=== PATIENT | male | born 1970 | race Caucasian/White ===

== ENCOUNTER 2020-11-16 16:37 | Emergency (ER) | payer MEDICAID ==
[2020-11-16] MEDS ORDERED: TORAdol 30 mg Injection IM ONE (16:47)
[2020-11-16] MEDS ORDERED: TORAdol 30 mg Injection ONE (16:50)
--- NOTE | 2020-11-16 17:10 | ERPHSYRPT ---
- History of Present Illness Time Seen by Provider: 11/16/20 17:07 Source: patient Exam Limitations: no limitations Patient Subjective Stated Complaint: left ankle pain Triage Nursing Assessment: Patient ambulated slowly back to ED and transferred self to bed. Patient A+O X3. Patient's skin pink, warm and dry. Patient complains of left ankle pain 9/10 for 4 days. Left ankle noted to be swollen. Patient denies injuring area. No bruising noted. Physician History: left ankle pain 1 day Patient complains of left ankle pain 9/10 for 4 days. Left ankle noted to be swollen. Patient denies injuring area. No bruising noted. Quality: burning Severity of Pain-Max: moderate Severity of Pain-Current: moderate Lower Extremities Pain: ankle: left Allergies/Adverse Reactions: No Known Drug Allergies Allergy (Unverified 11/16/20 16:42) Hx Influenza Vaccination/Date Given: No Hx Pneumococcal Vaccination/Date Given: No Immunizations Up to Date: Yes Travel Risk - International Travel Have you traveled outside of the country in past 3 weeks: No - Coronavirus Screening Are you exhibiting any of the following symptoms?: No Close contact with a COVID-19 positive Pt in past 14-21 Days: No - Review of Systems Constitutional: No Symptoms Eyes: No Symptoms Ears, Nose, & Throat: No Symptoms Respiratory: No Symptoms Cardiac: No Symptoms Abdominal/Gastrointestinal: No Symptoms Genitourinary Symptoms: No Symptoms Musculoskeletal: Joint Pain, Joint Swelling (left ankle) - Past Medical History Pertinent Past Medical History: Yes Neurological History: No Pertinent History ENT History: No Pertinent History Cardiac History: High Cholesterol Respiratory History: No Pertinent History Endocrine Medical History: No Pertinent History Musculoskeletal History: No Pertinent History GI Medical History: No Pertinent History History: No Pertinent History Psycho-Social History: No Pertinent History Male Reproductive Disorders: No Pertinent History Other Medical History: GOUT - Past Surgical History Past Surgical History: Yes Neuro Surgical History: No Pertinent History Cardiac: No Pertinent History Respiratory: No Pertinent History Gastrointestinal: No Pertinent History Genitourinary: No Pertinent History Musculoskeletal: Orthopedic Surgery Male Surgical History: No Pertinent History Other Surgical History: Right elbow 1991. Left elbow 2017 - Social History Smoking Status: Never smoker Exposure to second hand smoke: No Drug Use: none Patient Lives Alone: No - Nursing Vital Signs Nursing Vital Signs: Initial Vital Signs Temperature 98.5 F 11/16/20 16:43 Pulse Rate 99 H 11/16/20 16:43 Respiratory Rate 18 11/16/20 16:43 Blood Pressure 143/105 11/16/20 16:43 O2 Sat by Pulse Oximetry 97 11/16/20 16:43 Pain Scale Pain Intensity 9 - Physical Exam General Appearance: no apparent distress Eyes, Ears, Nose, Throat Exam: normal ENT inspection Neck Exam: normal inspection Cardiovascular/Respiratory Exam: chest non-tender Gastrointestinal/Abdominal Exam: non-tender Back Exam: normal inspection Hips Exam: bilateral: non-tender Legs Exam: bilateral leg: non-tender Knees Exam: bilateral knee: non-tender Ankle Exam: left ankle: soft tissue tenderness Foot Exam: left foot: soft tissue tenderness Neuro/Tendon Exam: normal sensation Mental Status Exam: alert, oriented x 3, cooperative SpO2: 97 - Course Nursing assessment & vital signs reviewed: Yes Ordered Tests: Active Orders 24 hr Category Date Time Status CBC W DIFF Stat Lab 11/16/20 16:47 Completed CMP Routine Lab 11/16/20 16:47 Completed Uric Acid Routine Lab 11/16/20 16:47 Completed Medication Summary Discontinued Medications Generic Name Dose Route Start Last Admin Trade Name Yohanq PRN Reason Stop Dose Admin Ketorolac Tromethamine 60 mg 11/16/20 16:47 11/16/20 16:52 Toradol 30 Mg Injection IM 11/16/20 16:48 60 mg STAT ONE Administration Ketorolac Tromethamine Confirm 11/16/20 16:50 Toradol 30 Mg Injection Administered 11/16/20 16:51 Dose 60 mg .ROUTE .STK-MED ONE Lab/Rad Data: Laboratory Result Diagrams 11/16/20 16:47 11/16/20 16:47 Laboratory Results 11/16/20 11/16/20 Range/Units 16:47 16:47 WBC 8.2 (4.0-10.5) K/mm3 RBC 4.64 (4.1-5.6) M/mm3 Hgb 14.0 (12.5-18.0) gm/dl Hct 41.4 L (42-50) % MCV 89.2 (78-100) fl MCH 30.2 (26-32) pg MCHC 33.8 (32-36) g/dl RDW 12.4 (11.5-14.0) % Plt Count 250 (150-450) K/mm3 MPV 9.3 (7.5-11.0) fl Gran % 55.8 (36.0-66.0) % Eos # (Auto) 0.14 (0-0.5) Absolute Lymphs (auto) 2.67 (1.0-4.6) Absolute Monos (auto) 0.80 (0.0-1.3) Lymphocytes % 32.4 (24.0-44.0) % Monocytes % 9.7 (0.0-12.0) % Eosinophils % 1.7 (0.00-5.0) % Basophils % 0.4 (0.0-0.4) % Absolute Granulocytes 4.60 (1.4-6.9) Basophils # 0.03 (0-0.4) Sodium 139 (137-145) mmol/L Potassium 4.4 (3.5-5.1) mmol/L Chloride 104 (98-107) mmol/L Carbon Dioxide 29 (22-30) mmol/L Anion Gap 10.4 (5-15) MEQ/L BUN 22 H (9-20) mg/dL Creatinine 1.11 (0.66-1.25) mg/dL Estimated GFR > 60.0 ML/MIN Glucose 104 (74-106) mg/dL Uric Acid 9.0 H (3.5-7.2) mg/dL Calcium 9.2 (8.4-10.2) mg/dL Total Bilirubin 0.50 (0.2-1.3) mg/dL AST 20 (17-59) U/L ALT 23 (0-50) U/L Alkaline Phosphatase 63 (38-126) U/L Serum Total Protein 7.5 (6.3-8.2) g/dL Albumin 4.2 (3.5-5.0) g/dL - Progress Progress: improved, pain not gone completely Counseled pt/family regarding: lab results, diagnosis, need for follow-up - Departure Departure Disposition: Home Clinical Impression: Gouty arthritis of left ankle Condition: Stable Critical Care Time: No Referrals: DOCTOR,NO FAMILY [Primary Care Provider] - Instructions: Lifestyle Changes to Manage Gout, Gout (DC) Additional Instructions: GEETHA RIDDLE was seen on 11/16/20 n the Emergency Room. At that time you were treated for an emergent condition, during your visit Laboratory, Radiology and/or other procedures may have been ordered. It is very important that you follow-up with your Primary Care Physician NO FAMILY DOCTOR within the next 24- 48 hours to review your Emergency Room visit and the final results of testing that was ordered. Some test results such as Urine Cultures, Blood Cultures, and other cultures if ordered will not be finalized for 24-48 hours. If you do not have a Primary Care Provider please call the medical records department at [phone] ext [phone] to obtain a copy of your results or you may sign into our patient portal to obtain these results by visiting us @ [email or web address] and completing the following steps: 1. Click on the Patient Portal link 2. Click the Patient Self Enrollment Link to complete the enrollment form and entering your 3. Once the enrollment form is completed you will receive an email with a temporary ID and password at the email address you provided. 4. Next choose a user name and password. Your user name must be at least 4 characters long and your password must be at least 4 characters long. 5. Choose a security question from the list and provide your answer to the question. If you already have signed into the Health Portal you may access your Health Care Information 08/06 by the following steps: 1. Login to our website @ [email or web address] 2. Enter your original user name and password. FAQS The [facility] Health Portal is an online tool that contains your Lab Results, Radiology Reports, Visit History, Discharge Instructions and Health Summary Lab and Radiology Results will not be available for 72 hours on the portal. The Portal is a secure site, passwords are encryted and URLs are re-written so they cannot be copied and pasted. You and authorized family members are the only ones who can access your Portal. Also there is a timeout feature that protects your information if you leave the Portal page open. If you have technical difficulty please use the Contact Us link on the page this will allow you to submit any questions you have regarding the Portal or you may contact the Medical Record Department at [phone]. Prescriptions: Indomethacin 25 mg [Indocin 25 MG] 25 mg PO TID #30 capsule Allopurinol 100 mg [Zyloprim 100 mg] 100 mg PO DAILY #30 tablet
[2020-11-16 17:24] LABS: BASOPHIL % 0.4 % (0.0-0.4); Basophil (Absolute #) 0.03 (0-0.4); Eosinophil % 1.7 % (0.00-5.0); Eosinophil (Absolute #) 0.14 (0-0.5); Hematocrit 41.4 % (42-50); Lymphocyte (Absolute #) 2.67 (1.0-4.6); Lymphocytes % 32.4 % (24.0-44.0); Mean Cell Volume 89.2 fl (78-100); Mean Corpuscular Hemoglobin 30.2 pg (26-32); Mean Corpuscular Hgb Concent. 33.8 g/dl (32-36); Mean Platelet Volume 9.3 fl (7.5-11.0); Monocytes % 9.7 % (0.0-12.0); Neutrophil % 55.8 % (36.0-66.0); Platelet Count 250 K/mm3 (150-450); Red Blood Count 4.64 M/mm3 (4.1-5.6); Red Cell Distribution Width 12.4 % (11.5-14.0); White Blood Count 8.2 K/mm3 (4.0-10.5)
[2020-11-16 17:34] LABS: ALBUMIN 4.2 g/dL (3.5-5.0); ALKALINE PHOSPHATASE 63 U/L (38-126); ANION GAP 10.4 MEQ/L (5-15); BLOOD UREA NITROGEN 22 mg/dL (9-20); CHLORIDE 104 mmol/L (98-107); Calcium 9.2 mg/dL (8.4-10.2); Carbon Dioxide 29 mmol/L (22-30); Creatinine 1 1.11 mg/dL (0.66-1.25); EST GLOMERULAR FILTRATION RATE > 60.0 ML/MIN; Glucose 104 mg/dL (74-106); Potassium 4.4 mmol/L (3.5-5.1); SGOT/AST 20 U/L (17-59); SGPT/ALT 23 U/L (0-50); SODIUM 139 mmol/L (137-145); Total Protein 7.5 g/dL (6.3-8.2)
[2020-11-16 17:59] VITALS: BP 120/78; PULSE 85; O2SAT 96
== END 2020-11-16 17:59 | disposition home or self-care (01) ==
LOC: ED 16:37
DX: M25.572 Pain in left ankle and joints of left foot (principal); M25.472 Effusion, left ankle; M10.9 Gout, unspecified
CPT/HCPCS: 36415; 80053; 84550; 85025; 96372; 99284; J1885

== ENCOUNTER 2021-03-10 19:27 | Emergency (ER) | payer MEDICAID ==
--- NOTE | 2021-03-10 20:21 | ERPHSYRPT ---
- History of Present Illness Time Seen by Provider: 03/10/21 19:40 Source: patient Exam Limitations: no limitations Patient Subjective Stated Complaint: Patient states " I have been having severe neck pain for over 3 weeks now and its not getting any better and I don't have a primary physician so I came to ER because the pain isn't getting any better". Triage Nursing Assessment: . Physician History: Memo is a 50-year-old male who presents with 2 problems is an injury to his right fifth toe when a griddle dropped from the stove onto his foot this occurred just about 30 minutes prior to arrival. His other problem is that he has had neck pain for more than 3 weeks he does have a history of gout and the pain seems to be getting worse. Denies any known injury. The pain is located midline lower posterior neck. Timing/Duration: week(s) (3) Severity: moderate Modifying Factors: Improves With: movement Associated Symptoms: denies symptoms Allergies/Adverse Reactions: No Known Drug Allergies Allergy (Unverified 03/10/21 19:33) Hx Tetanus, Diphtheria Vaccination/Date Given: Yes Hx Influenza Vaccination/Date Given: No Hx Pneumococcal Vaccination/Date Given: No Immunizations Up to Date: Yes Travel Risk - International Travel Have you traveled outside of the country in past 3 weeks: No - Coronavirus Screening Are you exhibiting any of the following symptoms?: No Close contact with a COVID-19 positive Pt in past 14-21 Days: No - Vaccine Status Have you recieved a Covid-19 vaccination: No - Review of Systems Constitutional: No Fever, No Chills Eyes: No Symptoms Ears, Nose, & Throat: No Symptoms Respiratory: No Cough, No Dyspnea Cardiac: No Chest Pain, No Edema, No Syncope Abdominal/Gastrointestinal: No Abdominal Pain, No Nausea, No Vomiting, No Diarrhea Genitourinary Symptoms: No Dysuria Musculoskeletal: Joint Pain, No Back Pain, No Neck Pain Skin: No Rash Neurological: No Dizziness, No Focal Weakness, No Sensory Changes Psychological: No Symptoms Endocrine: No Symptoms All Other Systems: Reviewed and Negative - Past Medical History Pertinent Past Medical History: Yes Neurological History: No Pertinent History ENT History: No Pertinent History Cardiac History: High Cholesterol Respiratory History: No Pertinent History Endocrine Medical History: No Pertinent History Musculoskeletal History: No Pertinent History GI Medical History: No Pertinent History History: No Pertinent History Psycho-Social History: No Pertinent History Male Reproductive Disorders: No Pertinent History Other Medical History: GOUT - Past Surgical History Past Surgical History: Yes Neuro Surgical History: No Pertinent History Cardiac: No Pertinent History Respiratory: No Pertinent History Gastrointestinal: No Pertinent History Genitourinary: No Pertinent History Musculoskeletal: Orthopedic Surgery Male Surgical History: No Pertinent History Other Surgical History: Right elbow 1991. Left elbow 2017 - Social History Smoking Status: Never smoker Exposure to second hand smoke: No Drug Use: none Patient Lives Alone: No - Nursing Vital Signs Nursing Vital Signs: Initial Vital Signs Temperature 98.9 F 03/10/21 19:35 Pulse Rate 95 H 03/10/21 19:35 Respiratory Rate 18 03/10/21 19:35 Blood Pressure 139/101 03/10/21 19:35 O2 Sat by Pulse Oximetry 95 03/10/21 19:35 Pain Scale Pain Intensity [Neck] 9 Pain Intensity 7 - Physical Exam General Appearance: mild distress, alert Eye Exam: PERRL/EOMI, eyes nml inspection Ears, Nose, Throat Exam: normal ENT inspection, TMs normal, pharynx normal, moist mucous membranes Neck Exam: normal inspection, full range of motion, midline tenderness Respiratory Exam: normal breath sounds, lungs clear, No respiratory distress Cardiovascular Exam: regular rate/rhythm, normal heart sounds, normal peripheral pulses Gastrointestinal/Abdomen Exam: soft, normal bowel sounds, No tenderness, No mass Back Exam: normal inspection, normal range of motion, No CVA tenderness, No vertebral tenderness Extremity Exam: normal inspection, normal range of motion, pelvis stable, other (There is a small abrasion to the fifth toe over the right foot. Vascular tendon intact) Neurologic Exam: alert, oriented x 3, cooperative, normal mood/affect, nml cerebellar function, nml station & gait, sensation nml, No motor deficits Skin Exam: normal color, warm, dry, No rash Lymphatic Exam: No adenopathy SpO2 Interpretation: normal SpO2: 95 O2 Delivery: Room Air - Course Nursing assessment & vital signs reviewed: Yes Ordered Tests: Active Orders 24 hr Category Date Time Status CERVICAL SPINE WO CONTRAST [CT] Stat Exams 03/10/21 20:01 Taken FOOT (MINIMUM 3 VIEWS) Stat Exams 03/10/21 20:00 Taken - Progress Progress: unchanged - Departure Departure Disposition: Home Clinical Impression: Neck pain, Contusion of fifth toe, right Condition: Stable Critical Care Time: No Referrals: DOCTOR,NO FAMILY [Primary Care Provider] - Instructions: Generalized Neck Pain (DC) Prescriptions: Prednisone 20 mg [Deltasone 20 mg] 20 mg PO BID 5 Days #10 tablet
[2021-03-10 21:10] VITALS: BP 117/79; PULSE 84
[2021-03-10 21:16] VITALS: O2SAT 95
--- NOTE | 2021-03-11 13:50 | XRAY ---
Exam: 3 views the right foot from 03/10/2021. Comparison: None. Indication: Dropped a griddle on right fifth toe. Findings: AP, oblique, and lateral radiographs of the right foot were obtained. The right fifth toe is mostly obscured by other bony structures on the lateral radiograph. However, I see no acute fracture or dislocation of the right fifth toe on the oblique or AP images. There appears to be at least mild hallux valgus. Some soft tissue prominence overlies the medial margin of the distal right first metatarsal head which may be due to a bunion. A tiny posterior calcaneal enthesophyte is seen. No other bone or joint abnormality is seen. No radiopaque soft tissue foreign body is seen. Impression: 1. No acute right foot fracture or dislocation is seen, particularly involving the right fifth toe. 2. Mild hallux valgus and probable bunion formation are incidentally noted.
--- NOTE | 2021-03-11 14:17 | XRAY ---
Exam: CT of the cervical spine without IV contrast from 03/10/2021. CTDI: 24.08 mGy Comparison: None. Indication: 50-year-old male with neck pain for 3 weeks; does heavy lifting at work; no known injury. Technique: Non-IV contrast axial images were obtained through the cervical spine. Reconstructed coronal and sagittal images were created and reviewed. Findings: No acute fracture, AP subluxation, or prevertebral soft tissue swelling is seen. The sagittal images reveal no jumped or perched facets. There is mild to moderate anterior osteophyte formation at C6-C7 with slight narrowing of the C6-C7 interspace height. A minimal anterior osteophyte is seen at C5-C6. The other cervical interspace heights are well-maintained. The uncovertebral joints appear unremarkable on the coronal images. No cervical ribs are seen. The spinal canal reveals no evidence of significant central canal stenosis. The preodontoid space is normal. I see no significant neural foraminal stenosis. The thoracic inlet appears unremarkable. The visualized lung apices reveal no significant abnormality. There is equivocal evidence of minimal partial atelectasis at the anterior medial aspect of the right lung apex. The paravertebral soft tissues of the neck appear unremarkable. Impression: 1. Mild/early degenerative changes seen within the lower cervical spine, as discussed above. 2. No cervical spine fracture or AP subluxation is seen. 3. I note some mild straightening of the cervical spine with loss of the normal lordotic curvature on the parasagittal reconstructed images. This may be positional. Posterior paravertebral muscular spasm cannot be excluded. 4. No significant central canal or cervical foraminal stenosis is seen.
== END 2021-03-10 21:37 | disposition home or self-care (01) ==
LOC: ED 19:27
DX: M54.2 Cervicalgia (principal); S90.121A Contusion of right lesser toe(s) without damage to nail, initial encounter; W22.8XXA Striking against or struck by other objects, initial encounter; Y93.9 Activity, unspecified; Y92.89 Other specified places as the place of occurrence of the external cause; M10.9 Gout, unspecified
CPT/HCPCS: 72125; 73630; 99284

== ENCOUNTER 2021-04-24 11:19 | Emergency (ER) | payer SELFPAY ==
--- NOTE | 2021-04-24 11:26 | ERPHSYRPT ---
- History of Present Illness Time Seen by Provider: 04/24/21 11:26 Source: patient Exam Limitations: no limitations Physician History: This is a 50-year-old white male who presents with a few day history of worsening right foot pain. Patient does have a history of gout and is taking allopurinol. He does not recall any injury to his right foot. He has had similar episodes in the past and he was diagnosed with gout each time. Indomethacin helped his pain. He has had no nausea vomiting or reaction or side effects to indomethacin use. Method of Injury: other (No trauma or injury) Occurred: days ago (A few days) Quality: aching Severity of Pain-Max: moderate Severity of Pain-Current: moderate Lower Extremities Pain: foot: right Modifying Factors: Improves With: movement Associated Symptoms: none Allergies/Adverse Reactions: No Known Drug Allergies Allergy (Verified 04/24/21 11:30) Hx Tetanus, Diphtheria Vaccination/Date Given: Yes Hx Influenza Vaccination/Date Given: No Hx Pneumococcal Vaccination/Date Given: No Travel Risk - International Travel Have you traveled outside of the country in past 3 weeks: No - Coronavirus Screening Are you exhibiting any of the following symptoms?: No Close contact with a COVID-19 positive Pt in past 14-21 Days: No - Vaccine Status Have you recieved a Covid-19 vaccination: No - Review of Systems Constitutional: No Symptoms Eyes: No Symptoms Ears, Nose, & Throat: No Symptoms Respiratory: No Symptoms Cardiac: No Symptoms Abdominal/Gastrointestinal: No Symptoms Genitourinary Symptoms: No Symptoms Musculoskeletal: Other (Right foot pain) Skin: No Symptoms Neurological: No Symptoms Psychological: No Symptoms Endocrine: No Symptoms Hematologic/Lymphatic: No Symptoms Immunological/Allergic: No Symptoms All Other Systems: Reviewed and Negative - Past Medical History Pertinent Past Medical History: Yes Neurological History: No Pertinent History ENT History: No Pertinent History Cardiac History: High Cholesterol Respiratory History: No Pertinent History Endocrine Medical History: No Pertinent History Musculoskeletal History: No Pertinent History GI Medical History: No Pertinent History History: No Pertinent History Psycho-Social History: No Pertinent History Male Reproductive Disorders: No Pertinent History Other Medical History: GOUT - Past Surgical History Past Surgical History: Yes Neuro Surgical History: No Pertinent History Cardiac: No Pertinent History Respiratory: No Pertinent History Gastrointestinal: No Pertinent History Genitourinary: No Pertinent History Musculoskeletal: Orthopedic Surgery Male Surgical History: No Pertinent History Other Surgical History: Right elbow 1991. Left elbow 2017 - Social History Smoking Status: Never smoker Exposure to second hand smoke: No Drug Use: none Patient Lives Alone: No - Nursing Vital Signs Nursing Vital Signs: Initial Vital Signs Temperature 98.1 F 04/24/21 11:23 Pulse Rate 77 04/24/21 11:23 Blood Pressure 139/95 04/24/21 11:23 O2 Sat by Pulse Oximetry 97 04/24/21 11:23 Pain Scale Pain Intensity 9 - Physical Exam General Appearance: no apparent distress, alert, anxiety Eyes, Ears, Nose, Throat Exam: normal ENT inspection, moist mucous membranes Neck Exam: normal inspection, non-tender, supple, full range of motion Cardiovascular/Respiratory Exam: chest non-tender, no respiratory distress Gastrointestinal/Abdominal Exam: non-tender Back Exam: normal inspection, normal range of motion, No CVA tenderness, No vertebral tenderness Hips Exam: bilateral: non-tender, normal inspection, normal range of motion, no evidence of injury Legs Exam: bilateral leg: non-tender, normal inspection, normal range of motion, no evidence of injury Knees Exam: bilateral knee: non-tender, normal inspection, normal range of motion, no evidence of injury Ankle Exam: bilateral ankle: non-tender, normal inspection, normal range of motion, no evidence of injury Foot Exam: right foot: soft tissue tenderness (Dorsal lateral aspect), left foot: non-tender, bilateral foot: normal inspection, normal range of motion, no evidence of injury Neuro/Tendon Exam: normal sensation, normal motor functions, normal tendon functions, responds to pain Mental Status Exam: alert, oriented x 3, cooperative Skin Exam: normal color, warm, dry SpO2 Interpretation: normal - Course Nursing assessment & vital signs reviewed: Yes Ordered Tests: Active Orders 24 hr Category Date Time Status FOOT (MINIMUM 3 VIEWS) Stat Exams 04/24/21 11:43 Completed - Progress Progress: unchanged Progress Note: 04/24/21 12:08 x-ray of his right foot shows no acute fracture or dislocation. Counseled pt/family regarding: diagnosis, need for follow-up, rad results - Departure Departure Disposition: Home Clinical Impression: Right foot pain Condition: Stable Critical Care Time: No Referrals: DOCTOR,NO FAMILY [Primary Care Provider] - Additional Instructions: Take medication as prescribed. Follow-up with your primary care physician for further management. Prescriptions: Oxycodone HCl/Acetaminophen [Percocet 5-325 mg Tablet] 1 each PO Q12H PRN PRN #6 tablet MDD 2 PRN Reason: Pain Indomethacin 25 mg [Indocin 25 MG] 25 mg PO TID #15 capsule
[2021-04-24 11:30] VITALS: BP 139/95; PULSE 77; O2SAT 97
--- NOTE | 2021-04-24 12:04 | XRAY ---
Indication: Pain 2 days. No known injury. Comparison: March 10, 2021. 3 nonweightbearing views right foot again demonstrates mild 1st MTP valgus deformity. No new/acute bony, articular, or soft tissue abnormalities.
== END 2021-04-24 12:38 | disposition home or self-care (01) ==
LOC: ED 11:19
DX: M79.671 Pain in right foot (principal); M10.9 Gout, unspecified
CPT/HCPCS: 73630; 99283

== ENCOUNTER 2021-05-04 01:09 | Emergency (ER) | payer MEDICAID ==
[2021-05-04] MEDS ORDERED: TORAdol 30 mg Injection IM ONE (01:42)
[2021-05-04] MEDS ORDERED: TORAdol 30 mg Injection ONE (01:46)
--- NOTE | 2021-05-04 01:50 | ERPHSYRPT ---
- History of Present Illness Time Seen by Provider: 05/04/21 01:46 Source: patient Exam Limitations: no limitations Patient Subjective Stated Complaint: pt states he has been having rt knee pain and swelling since approx thursday Triage Nursing Assessment: pt alert and oriented, answers questions approp. pt ambulates to room with slow limping gait noted. respirations nonlabored. skin warm and dry. swelling noted to rt knee. no redness or warmth noted. pedal pulse and cap refill wnl. Physician History: pt states he has been having right knee pain and swelling since Thursday. Unable to bend right knee. Swelling above knee area. No fever, no warmth around knee area Method of Injury: unknown Occurred: days ago (three) Quality: tightness Severity of Pain-Max: mild Severity of Pain-Current: mild Lower Extremities Pain: knee: right Modifying Factors: Improves With: cold therapy Associated Symptoms: none Allergies/Adverse Reactions: No Known Drug Allergies Allergy (Verified 05/04/21 01:44) Hx Tetanus, Diphtheria Vaccination/Date Given: Yes Hx Influenza Vaccination/Date Given: No Hx Pneumococcal Vaccination/Date Given: No Immunizations Up to Date: Yes Travel Risk - International Travel Have you traveled outside of the country in past 3 weeks: No - Coronavirus Screening Are you exhibiting any of the following symptoms?: No Close contact with a COVID-19 positive Pt in past 14-21 Days: No - Vaccine Status Have you recieved a Covid-19 vaccination: No - Review of Systems Constitutional: No Symptoms Eyes: No Symptoms Ears, Nose, & Throat: No Symptoms Respiratory: No Symptoms Cardiac: No Symptoms Abdominal/Gastrointestinal: No Symptoms Genitourinary Symptoms: No Symptoms Musculoskeletal: Joint Swelling Skin: No Symptoms Neurological: No Symptoms Psychological: No Symptoms Endocrine: No Symptoms - Past Medical History Pertinent Past Medical History: Yes Neurological History: No Pertinent History ENT History: No Pertinent History Cardiac History: High Cholesterol Respiratory History: No Pertinent History Endocrine Medical History: No Pertinent History Musculoskeletal History: No Pertinent History GI Medical History: No Pertinent History History: No Pertinent History Psycho-Social History: No Pertinent History Male Reproductive Disorders: No Pertinent History Other Medical History: GOUT - Past Surgical History Past Surgical History: Yes Neuro Surgical History: No Pertinent History Cardiac: No Pertinent History Respiratory: No Pertinent History Gastrointestinal: Hernia Repair Genitourinary: No Pertinent History Musculoskeletal: Orthopedic Surgery Male Surgical History: No Pertinent History Other Surgical History: Right elbow 1992. Left elbow 2018 - Social History Smoking Status: Never smoker Exposure to second hand smoke: No Drug Use: none Patient Lives Alone: No - Nursing Vital Signs Nursing Vital Signs: Initial Vital Signs Temperature 97.8 F 05/04/21 01:19 Pulse Rate 79 05/04/21 01:19 Respiratory Rate 18 05/04/21 01:19 Blood Pressure 152/100 05/04/21 01:19 O2 Sat by Pulse Oximetry 94 L 05/04/21 01:19 Pain Scale Pain Intensity 9 - Physical Exam General Appearance: no apparent distress Eyes, Ears, Nose, Throat Exam: normal ENT inspection Neck Exam: normal inspection Cardiovascular/Respiratory Exam: chest non-tender Gastrointestinal/Abdominal Exam: non-tender Back Exam: normal inspection Hips Exam: bilateral: non-tender Legs Exam: bilateral leg: non-tender Knees Exam: right knee: joint effusion, soft tissue tenderness, left knee: normal range of motion, bilateral knee: no evidence of injury, deformity Ankle Exam: bilateral ankle: non-tender SpO2: 94 - Course Nursing assessment & vital signs reviewed: Yes - Radiology Exams Knee X-ray Interpretation: Reviewed by me Ordered Tests: Active Orders 24 hr Category Date Time Status KNEE (3 VIEWS) Stat Exams 05/04/21 01:41 Ordered CBC W DIFF Stat Lab 05/04/21 02:00 Completed Uric Acid Stat Lab 05/04/21 02:00 Completed Medication Summary Discontinued Medications Generic Name Dose Route Start Last Admin Trade Name Freq PRN Reason Stop Dose Admin Ketorolac Tromethamine 60 mg 05/04/21 01:42 05/04/21 01:50 Toradol 30 Mg Injection IM 05/04/21 01:43 60 mg STAT ONE Administration Ketorolac Tromethamine Confirm 05/04/21 01:46 Toradol 30 Mg Injection Administered 05/04/21 01:47 Dose 60 mg .ROUTE .STK-MED ONE Lab/Rad Data: Laboratory Result Diagrams 05/04/21 02:00 Laboratory Results 05/04/21 05/04/21 Range/Units 02:00 02:00 WBC 6.2 (4.0-10.5) K/mm3 RBC 4.27 (4.1-5.6) M/mm3 Hgb 12.7 (12.5-18.0) gm/dl Hct 38.1 L (42-50) % MCV 89.2 (78-100) fl MCH 29.7 (26-32) pg MCHC 33.3 (32-36) g/dl RDW 13.3 (11.5-14.0) % Plt Count 242 (150-450) K/mm3 MPV 9.5 (7.5-11.0) fl Gran % 47.7 (36.0-66.0) % Eos # (Auto) 0.15 (0-0.5) Absolute Lymphs (auto) 2.41 (1.0-4.6) Absolute Monos (auto) 0.67 (0.0-1.3) Lymphocytes % 38.6 (24.0-44.0) % Monocytes % 10.7 (0.0-12.0) % Eosinophils % 2.4 (0.00-5.0) % Basophils % 0.6 (0.0-0.4) % Absolute Granulocytes 2.97 (1.4-6.9) Basophils # 0.04 (0-0.4) Uric Acid 9.2 H (3.5-7.2) mg/dL - Progress Progress: improved Counseled pt/family regarding: lab results, diagnosis, need for follow-up (ortho clinic), rad results - Departure Departure Disposition: Home Clinical Impression: Effusion, right knee Gout attack Qualifiers: Gout site: knee Gout etiology: idiopathic Laterality: right Qualified Code(s): M10.061 - Idiopathic gout, right knee Condition: Stable Critical Care Time: No Referrals: DOCTOR,NO FAMILY [Primary Care Provider] - [facility]-Ortho M-F [id number] Instructions: Swollen Joints (DC), Gout, Lifestyle Changes to Manage Gout, Gout (DC), Low Purine Diet, Uric Acid Blood Test Additional Instructions: Discharge/Care Plan GEETHA RIDDLE was seen on 05/04/21 in the Emergency Room. The patient was counseled regarding Diagnosis,Lab results, Imaging studies, need for follow up and when to return to the Emergency Room. Prescriptions given: Discharge Note I have spoken with the patient and/or caregivers. I have explained the patient's condition, diagnosis and treatment plan based on the information available to me at this time. I have answered the patient's and/or caregiver's questions and addressed any concerns. The patient and/or caregivers have as good understanding of the patient's diagnosis, condition and treatment plan as can be expected at this point. The vital signs have been stable. The patient's condition is stable and appropriate for discharge from the emergency department. The patient will pursue further outpatient evaluation with the primary care physician or other designated or consulting physician as outlined in the discharge instructions. The patient and/or caregivers are agreeable to this plan of care and follow-up instructions have been explained in detail. The patient and/or caregivers have received these instruction. The patient/and or caregivers are aware that any significant change in condition or worsening of symptoms should prompt an immediate return to this or the closest emergency department or call 911. GEETHA RIDDLE was seen on 05/04/21 n the Emergency Room. At that time you were treated for an emergent condition, during your visit Laboratory, Radiology and/or other procedures may have been ordered. It is very important that you follow-up with your Primary Care Physician NO FAMILY DOCTOR within the next 24- 48 hours to review your Emergency Room visit and the final results of testing that was ordered. Some test results such as Urine Cultures, Blood Cultures, and other cultures if ordered will not be finalized for 24-48 hours. If you do not have a Primary Care Provider please call the medical records department at [phone] ext [phone] to obtain a copy of your results or you may sign into our patient portal to obtain these results by visiting us @ [email or web address] and completing the following steps: 1. Click on the Patient Portal link 2. Click the Patient Self Enrollment Link to complete the enrollment form and entering your 3. Once the enrollment form is completed you will receive an email with a temporary ID and password at the email address you provided. 4. Next choose a user name and password. Your user name must be at least 4 characters long and your password must be at least 4 characters long. 5. Choose a security question from the list and provide your answer to the question. If you already have signed into the Health Portal you may access your Health Care Information 08/06 by the following steps: 1. Login to our website @ [email or web address] 2. Enter your original user name and password. FAQS The [facility] Health Portal is an online tool that contains your Lab Results, Radiology Reports, Visit History, Discharge Instructions and Health Summary Lab and Radiology Results will not be available for 72 hours on the portal. The Portal is a secure site, passwords are encryted and URLs are re-written so they cannot be copied and pasted. You and authorized family members are the only ones who can access your Portal. Also there is a timeout feature that protects your information if you leave the Portal page open. If you have technical difficulty please use the Contact Us link on the page this will allow you to submit any questions you have regarding the Portal or you may contact the Medical Record Department at [phone] ext [phone]. Prescriptions: Indomethacin 25 mg [Indocin 25 MG] 25 mg PO TID #15 capsule Allopurinol 100 mg [Zyloprim 100 mg] 100 mg PO DAILY 30 Days #30 tablet
[2021-05-04 02:23] LABS: Absolute Neutrophil Ct (ANC) 2.97 (1.4-6.9); BASOPHIL % 0.6 % (0.0-0.4); Basophil (Absolute #) 0.04 (0-0.4); Eosinophil % 2.4 % (0.00-5.0); Eosinophil (Absolute #) 0.15 (0-0.5); Hematocrit 38.1 % (42-50); Hemoglobin 12.7 gm/dl (12.5-18.0); Lymphocyte (Absolute #) 2.41 (1.0-4.6); Lymphocytes % 38.6 % (24.0-44.0); Mean Cell Volume 89.2 fl (78-100); Mean Corpuscular Hemoglobin 29.7 pg (26-32); Mean Corpuscular Hgb Concent. 33.3 g/dl (32-36); Mean Platelet Volume 9.5 fl (7.5-11.0); Monocyte (Absolute #) 0.67 (0.0-1.3); Monocytes % 10.7 % (0.0-12.0); Neutrophil % 47.7 % (36.0-66.0); Platelet Count 242 K/mm3 (150-450); Red Blood Count 4.27 M/mm3 (4.1-5.6); Red Cell Distribution Width 13.3 % (11.5-14.0); White Blood Count 6.2 K/mm3 (4.0-10.5)
[2021-05-04 02:47] VITALS: BP 138/85; PULSE 71; O2SAT 96
--- NOTE | 2021-05-04 07:47 | XRAY ---
Indication: Pain and swelling 3 days. No known injury. Comparison: None 3 view right knee demonstrates nonspecific effusion. No other bony, articular, or soft tissue abnormalities.
== END 2021-05-04 03:00 | disposition home or self-care (01) ==
LOC: ED 01:09
DX: M25.462 Effusion, left knee (principal); M10.9 Gout, unspecified
CPT/HCPCS: 36415; 73562; 84550; 85025; 96372; 99284; J1885

== ENCOUNTER 2021-07-27 12:49 | Emergency (ER) | payer MEDICAID ==
[2021-07-27 13:10] VITALS: BP 135/84
--- NOTE | 2021-07-27 13:45 | ERPHSYRPT ---
- History of Present Illness Time Seen by Provider: 07/27/21 13:43 Source: patient Exam Limitations: no limitations Patient Subjective Stated Complaint: Ankle injury Triage Nursing Assessment: Patient ambulated back to ED slowly and transferred self to bed. Patient A+O X3. Patient's skin pink, warm and dry. Patient complains of left ankle/foot pain after walking and hearing a "pop" 3 days ago. Patient's left ankle is swollen and painful 10/10. Physician History: Patient complains of left ankle/foot pain after walking and hearing a "pop" 3 days ago. Patient's left ankle is swollen and painful 10/10. Method of Injury: twisted Occurred: days ago (three days ago) Quality: constant Severity of Pain-Max: moderate Severity of Pain-Current: moderate Lower Extremities Pain: ankle: left Modifying Factors: Improves With: nothing Associated Symptoms: unable to bear weight, popping sensation Allergies/Adverse Reactions: No Known Drug Allergies Allergy (Verified 07/27/21 13:03) Hx Tetanus, Diphtheria Vaccination/Date Given: Yes Hx Influenza Vaccination/Date Given: No Hx Pneumococcal Vaccination/Date Given: No Immunizations Up to Date: Yes Travel Risk - International Travel Have you traveled outside of the country in past 3 weeks: No - Coronavirus Screening Are you exhibiting any of the following symptoms?: No Close contact with a COVID-19 positive Pt in past 14-21 Days: No - Vaccine Status Have you recieved a Covid-19 vaccination: No - Review of Systems Constitutional: No Fever, No Chills Eyes: No Symptoms Ears, Nose, & Throat: No Symptoms Respiratory: No Cough, No Dyspnea Cardiac: No Chest Pain, No Edema, No Syncope Abdominal/Gastrointestinal: No Abdominal Pain, No Nausea, No Vomiting, No Diarrhea Genitourinary Symptoms: No Dysuria Musculoskeletal: Fall, Joint Pain, Joint Swelling, No Back Pain, No Neck Pain Skin: No Rash Neurological: No Dizziness, No Focal Weakness, No Sensory Changes Psychological: No Symptoms Endocrine: No Symptoms All Other Systems: Reviewed and Negative - Past Medical History Pertinent Past Medical History: Yes Neurological History: No Pertinent History ENT History: No Pertinent History Cardiac History: High Cholesterol Respiratory History: No Pertinent History Endocrine Medical History: No Pertinent History Musculoskeletal History: No Pertinent History GI Medical History: No Pertinent History History: No Pertinent History Psycho-Social History: No Pertinent History Male Reproductive Disorders: No Pertinent History Other Medical History: GOUT - Past Surgical History Past Surgical History: Yes Neuro Surgical History: No Pertinent History Cardiac: No Pertinent History Respiratory: No Pertinent History Gastrointestinal: Hernia Repair Genitourinary: No Pertinent History Musculoskeletal: Orthopedic Surgery Male Surgical History: No Pertinent History Other Surgical History: Right elbow 1991. Left elbow 2017 - Social History Smoking Status: Never smoker Exposure to second hand smoke: No Drug Use: none Patient Lives Alone: No - Nursing Vital Signs Nursing Vital Signs: Initial Vital Signs Temperature 98.0 F 07/27/21 13:06 Pulse Rate 111 H 07/27/21 13:06 Respiratory Rate 18 07/27/21 13:06 Blood Pressure 135/84 07/27/21 13:06 O2 Sat by Pulse Oximetry 95 07/27/21 13:06 Pain Scale Pain Intensity 10 - Physical Exam General Appearance: no apparent distress Eyes, Ears, Nose, Throat Exam: normal ENT inspection Neck Exam: normal inspection Cardiovascular/Respiratory Exam: chest non-tender Gastrointestinal/Abdominal Exam: non-tender Back Exam: normal inspection Hips Exam: bilateral: non-tender Legs Exam: bilateral leg: non-tender Knees Exam: bilateral knee: non-tender Ankle Exam: left ankle: limited range of motion, pain, soft tissue tenderness, swelling SpO2: 95 Procedures - Splinting Time of Procedure: 13:52 Location of Splint: Left, Ankle Type of Splint: Walking Boot/Shoe Splint Applied By: ED Nurse Pre-Proc Neuro Vasc Exam: normal Post-Proc Neuro Vasc Exam: neurovascular intact, good alignment, unchanged from pre-exam - Radiology Exams Ankle X-ray Interpretation: Reviewed by me, Negative, No Fracture, No Subluxation Ordered Tests: Active Orders 24 hr Category Date Time Status ANKLE (3 VIEWS) Stat Exams 07/27/21 13:43 Taken FOOT (MINIMUM 3 VIEWS) Stat Exams 07/27/21 13:43 Taken - Progress Progress: unchanged Counseled pt/family regarding: diagnosis, need for follow-up, rad results - Departure Departure Disposition: Home Clinical Impression: Moderate left ankle sprain Qualifiers: Encounter type: initial encounter Qualified Code(s): S93.402A - Sprain of unspecified ligament of left ankle, initial encounter Condition: Stable Critical Care Time: No Referrals: DOCTOR,NO FAMILY [Primary Care Provider] - AMITA XIE MD [ACTIVE STAFF] - Follow Up with PCP/3 days Instructions: Foot Sprain (DC), Ankle Sprain (DC) Additional Instructions: Discharge/Care Plan GEETHA RIDDLE was seen on 07/27/21 in the Emergency Room. The patient was counseled regarding Diagnosis,Lab results, Imaging studies, need for follow up and when to return to the Emergency Room. Prescriptions given: Discharge Note I have spoken with the patient and/or caregivers. I have explained the patient's condition, diagnosis and treatment plan based on the information available to me at this time. I have answered the patient's and/or caregiver's questions and addressed any concerns. The patient and/or caregivers have as good understanding of the patient's diagnosis, condition and treatment plan as can be expected at this point. The vital signs have been stable. The patient's condition is stable and appropriate for discharge from the emergency department. The patient will pursue further outpatient evaluation with the primary care physician or other designated or consulting physician as outlined in the jennifer patel instructions. The patient and/or caregivers are agreeable to this plan of care and follow-up instructions have been explained in detail. The patient and/or caregivers have received these instruction. The patient/and or caregivers are aware that any significant change in condition or worsening of symptoms should prompt an immediate return to this or the closest emergency department or call 911. GEETHA RIDDLE was seen on 07/27/21 n the Emergency Room. At that time you were treated for an emergent condition, during your visit Laboratory, Radiology and/or other procedures may have been ordered. It is very important that you follow-up with your Primary Care Physician NO FAMILY DOCTOR within the next 24- 48 hours to review your Emergency Room visit and the final results of testing that was ordered. Some test results such as Urine Cultures, Blood Cultures, and other cultures if ordered will not be finalized for 24-48 hours. If you do not have a Primary Care Provider please call the medical records department at [phone] ext [phone] to obtain a copy of your results or you may sign into our patient portal to obtain these results by visiting us @ [email or web address] and completing the following steps: 1. Click on the Patient Portal link 2. Click the Patient Self Enrollment Link to complete the enrollment form and entering your 3. Once the enrollment form is completed you will receive an email with a temporary ID and password at the email address you provided. 4. Next choose a user name and password. Your user name must be at least 4 characters long and your password must be at least 4 characters long. 5. Choose a security question from the list and provide your answer to the question. If you already have signed into the Health Portal you may access your Health Care Information 08/06 by the following steps: 1. Login to our website @ [email or web address] 2. Enter your original user name and password. FAQS The [facility] Health Portal is an online tool that contains your Lab Results, Radiology Reports, Visit History, Discharge Instructions and Health Summary Lab and Radiology Results will not be available for 72 hours on the portal. The Portal is a secure site, passwords are encryted and URLs are re-written so they cannot be copied and pasted. You and authorized family members are the only ones who can access your Portal. Also there is a timeout feature that protects your information if you leave the Portal page open. If you have technical difficulty please use the Contact Us link on the page this will allow you to submit any questions you have regarding the Portal or you may contact the Medical Record Department at [phone] ext [phone]. Prescriptions: Indomethacin 25 mg [Indocin 25 MG] 25 mg PO TID #30 cap
[2021-07-27] MEDS ORDERED: TORAdol 30 mg Injection IM ONE (13:53)
[2021-07-27] MEDS ORDERED: TORAdol 30 mg Injection ONE (13:58)
[2021-07-27 14:20] VITALS: PULSE 94; O2SAT 98
--- NOTE | 2021-07-27 20:30 | XRAY ---
Indication: Pain following injury 4 days ago. Comparison: None 3 view left ankle demonstrates mild anterior lateral soft tissue swelling, tiny posterior heel spur, and 5 mm anterior talus heterotopic ossification. No other bony, articular, or soft tissue abnormalities.
--- NOTE | 2021-07-27 20:32 | XRAY ---
Indication: Pain following injury 4 days ago. Comparison: None 3 nonweightbearing views left foot demonstrates tiny posterior heel spur and 5 mm anterior talus heterotopic ossification. No other bony, articular, or soft tissue abnormalities.
== END 2021-07-27 14:23 | disposition home or self-care (01) ==
LOC: ED 12:49
DX: S93.402A Sprain of unspecified ligament of left ankle, initial encounter (principal); E78.00 Pure hypercholesterolemia, unspecified
CPT/HCPCS: 73610; 73630; 96372; 99284; J1885; L4386

== ENCOUNTER 2021-08-17 16:11 | Emergency (ER) | payer MEDICAID ==
--- NOTE | 2021-08-17 16:16 | ERPHSYRPT ---
- History of Present Illness Time Seen by Provider: 08/17/21 16:16 Source: patient Physician History: This a 50-year-old obese white male who has a history of gout and elevated cholesterol and presents with 1 day history of worsening perianal pain. Yesterday he noticed a lump in the left perianal area that is increased in size and tenderness over the 24-hour. He describes the pain as being an 8 out of 10 significant sharp pain and achiness as well. He did notice some blood with bowel movement. Timing/Duration: yesterday Severity: moderate Associated Symptoms: denies symptoms Allergies/Adverse Reactions: No Known Drug Allergies Allergy (Verified 08/17/21 16:31) Hx Tetanus, Diphtheria Vaccination/Date Given: Yes Hx Influenza Vaccination/Date Given: No Hx Pneumococcal Vaccination/Date Given: No Travel Risk - International Travel Have you traveled outside of the country in past 3 weeks: No - Coronavirus Screening Are you exhibiting any of the following symptoms?: No Close contact with a COVID-19 positive Pt in past 14-21 Days: No - Vaccine Status Have you recieved a Covid-19 vaccination: No - Review of Systems Constitutional: No Symptoms Eyes: No Symptoms Ears, Nose, & Throat: No Symptoms Respiratory: No Symptoms Cardiac: No Symptoms Abdominal/Gastrointestinal: No Symptoms, Other (Left perianal pain with mass) Genitourinary Symptoms: No Symptoms Musculoskeletal: No Symptoms Skin: No Symptoms Neurological: No Symptoms Psychological: No Symptoms Endocrine: No Symptoms Hematologic/Lymphatic: No Symptoms Immunological/Allergic: No Symptoms All Other Systems: Reviewed and Negative - Past Medical History Pertinent Past Medical History: Yes Neurological History: No Pertinent History ENT History: No Pertinent History Cardiac History: High Cholesterol Respiratory History: No Pertinent History Endocrine Medical History: No Pertinent History Musculoskeletal History: No Pertinent History GI Medical History: No Pertinent History History: No Pertinent History Psycho-Social History: No Pertinent History Male Reproductive Disorders: No Pertinent History Other Medical History: GOUT - Past Surgical History Past Surgical History: Yes Neuro Surgical History: No Pertinent History Cardiac: No Pertinent History Respiratory: No Pertinent History Gastrointestinal: Hernia Repair Genitourinary: No Pertinent History Musculoskeletal: Orthopedic Surgery Male Surgical History: No Pertinent History Other Surgical History: Right elbow 1991. Left elbow 2017 - Social History Smoking Status: Never smoker Exposure to second hand smoke: No Drug Use: none Patient Lives Alone: No - Nursing Vital Signs Nursing Vital Signs: Initial Vital Signs Temperature 96.5 F 08/17/21 16:22 Pulse Rate 101 H 08/17/21 16:22 Blood Pressure 134/89 08/17/21 16:22 O2 Sat by Pulse Oximetry 96 08/17/21 16:22 Pain Scale Pain Intensity 8 - Physical Exam General Appearance: no apparent distress, alert, anxiety, obese Eye Exam: PERRL/EOMI, eyes nml inspection Ears, Nose, Throat Exam: normal ENT inspection, moist mucous membranes Neck Exam: normal inspection, non-tender, supple, full range of motion Respiratory Exam: airway intact, No chest tenderness, No respiratory distress Gastrointestinal/Abdomen Exam: No tenderness Rectal Exam: mass (Left subcutaneous. All external thrombosed hemorrhoid.), tenderness, other (Left perianal pain) Back Exam: normal inspection, normal range of motion, No CVA tenderness, No vertebral tenderness Extremity Exam: normal inspection, normal range of motion, pelvis stable Neurologic Exam: alert, oriented x 3, cooperative, reversal print inspector II-XII nml as tested, normal mood/affect, nml cerebellar function, nml station & gait, sensation nml Skin Exam: normal color, warm, dry Lymphatic Exam: No adenopathy SpO2 Interpretation: normal O2 Delivery: Room Air Procedures - Additional Procedures Progress: Timeout was performed 1654. Perianal region was prepped with Betadine solution. 2 cc of 1% lidocaine plain was used to inject the skin overlying the left side, 9 o'clock position 2 cm x 2 cm inflamed tender external thrombosed hemorrhoid. An elliptical incision was made with a #15 blade and large amount of clot was removed. The patient states he instantly had significant pain relief. There were no complications. The patient told the procedure well. - Course Nursing assessment & vital signs reviewed: Yes - Progress Progress: improved Counseled pt/family regarding: diagnosis - Departure Departure Disposition: Home Clinical Impression: External thrombosed hemorrhoids Condition: Stable Critical Care Time: No Referrals: DOCTOR,NO FAMILY [Primary Care Provider] - Additional Instructions: Sitz bath twice a day with warm soapy water or warm Epson salt water. Use Tylenol and ibuprofen for pain control. Follow-up with your primary care physician as needed. Return to the emergency department if symptoms worsen.
[2021-08-17 16:33] VITALS: BP 134/89; PULSE 101; O2SAT 96
== END 2021-08-17 17:14 | disposition home or self-care (01) ==
LOC: ED 16:11
DX: K64.5 Perianal venous thrombosis (principal)
CPT/HCPCS: 99283

== ENCOUNTER 2021-11-10 12:51 | Emergency (ER) | payer MEDICAID ==
--- NOTE | 2021-11-10 13:41 | ERPHSYRPT ---
- History of Present Illness Time Seen by Provider: 11/10/21 13:25 Source: patient Exam Limitations: no limitations Patient Subjective Stated Complaint: to er c/o right elbow pain swelling and redness. pt denies any injury to area states on Thursday area became red and hot t o touch. Triage Nursing Assessment: Pt arrive p/w/d resp easy a@Ox3 with some swelling and warmth noted to right area. pt has pins in elbow from surgery in 1991. pt ROM limited dt pain with movement Physician History: This is a 50-year-old white male who is right-handed and has had right elbow surgery in 1991 in [place]. 6 days ago, the patient noticed some redness and swelling which worsened throughout the 6 days. It was warm to touch as well. He is concerned about infection. He has no fevers or chills symptoms. Occurred: days ago (6) Method of Injury: other (No injury) Quality: constant, aching (Mild ache with swelling and redness and warmth) Severity of Pain-Max: mild Severity of Pain-Current: mild Extremities Pain Location: elbow: right Modifying Factors: Improves With: movement Associated Symptoms: none Allergies/Adverse Reactions: No Known Drug Allergies Allergy (Verified 08/17/21 16:31) Hx Tetanus, Diphtheria Vaccination/Date Given: Yes Hx Influenza Vaccination/Date Given: No Hx Pneumococcal Vaccination/Date Given: No Travel Risk - International Travel Have you traveled outside of the country in past 3 weeks: No - Coronavirus Screening Are you exhibiting any of the following symptoms?: No Close contact with a COVID-19 positive Pt in past 14-21 Days: No - Vaccine Status Have you recieved a Covid-19 vaccination: No - Review of Systems Constitutional: No Symptoms Eyes: No Symptoms Ears, Nose, & Throat: No Symptoms Respiratory: No Symptoms Cardiac: No Symptoms Abdominal/Gastrointestinal: No Symptoms Genitourinary Symptoms: No Symptoms Musculoskeletal: Joint Pain (Right elbow pain), Joint Swelling (Right elbow swelling) Skin: Cellulitis (Mild skin overlying right elbow) Neurological: No Symptoms Psychological: No Symptoms Endocrine: No Symptoms Hematologic/Lymphatic: No Symptoms Immunological/Allergic: No Symptoms All Other Systems: Reviewed and Negative - Past Medical History Pertinent Past Medical History: Yes Neurological History: No Pertinent History ENT History: No Pertinent History Cardiac History: High Cholesterol Respiratory History: No Pertinent History Endocrine Medical History: No Pertinent History Musculoskeletal History: No Pertinent History GI Medical History: No Pertinent History History: No Pertinent History Psycho-Social History: No Pertinent History Male Reproductive Disorders: No Pertinent History Other Medical History: GOUT - Past Surgical History Past Surgical History: Yes Neuro Surgical History: No Pertinent History Cardiac: No Pertinent History Respiratory: No Pertinent History Gastrointestinal: Hernia Repair Genitourinary: No Pertinent History Musculoskeletal: Orthopedic Surgery Male Surgical History: No Pertinent History Other Surgical History: Right elbow 1991. Left elbow 2017 - Social History Smoking Status: Never smoker Exposure to second hand smoke: No Drug Use: none Patient Lives Alone: No - Nursing Vital Signs Nursing Vital Signs: Initial Vital Signs Temperature 97.1 F 11/10/21 12:59 Pulse Rate 107 H 11/10/21 12:59 Respiratory Rate 16 11/10/21 12:59 Blood Pressure 142/102 11/10/21 12:59 O2 Sat by Pulse Oximetry 97 11/10/21 12:59 Pain Scale Pain Intensity 0 - Physical Exam General Appearance: no apparent distress, alert, anxiety Eyes, Ears, Nose, Throat Exam: normal ENT inspection, moist mucous membranes Neck Exam: normal inspection, non-tender, supple, full range of motion Cardiovascular/Respiratory Exam: chest non-tender, no respiratory distress Abdominal Exam: non-tender Back Exam: normal inspection, normal range of motion, No CVA tenderness, No vertebral tenderness Shoulder Exam: normal inspection, non-tender, no evidence of injury, normal ROM Elbow/Forearm Exam: soft tissue tenderness, swelling (With associated warmth and rednessmild), No no evidence of injury Wrist Exam: normal inspection, non-tender, no evidence of injury, normal ROM Hand Exam: normal inspection, non-tender, no evidence of injury, normal ROM Neuro/Tendon Exam: normal sensation, normal motor functions, normal tendon functions Mental Status Exam: alert, oriented x 3, cooperative Skin Exam: other (Mild cellulitis skin overlying right elbow) SpO2 Interpretation: normal SpO2: 97 O2 Delivery: Room Air - Course Nursing assessment & vital signs reviewed: Yes Ordered Tests: Active Orders 24 hr Category Date Time Status ELBOW (MINIMUM 3 VIEWS) Stat Exams 11/10/21 13:42 Taken - Progress Progress: pain not gone completely, re-examined Progress Note: 11/10/21 14:33 X-ray of right elbow does not show acute fracture or dislocation. The surgical wires appear to be in a normal position. Medical decision making: I will send this patient to orthopedic clinic here at [facility] on 11/11/2021. We will place the patient on antibiotics. Counseled pt/family regarding: diagnosis, need for follow-up, rad results - Departure Departure Disposition: Home Clinical Impression: Cellulitis of right elbow Condition: Stable Critical Care Time: No Referrals: FAUSTO GUTIERRES MD [Primary Care Provider] - [facility]-Ortho M-[id number] (Follow- up at [facility] orthopedic clinic office tomorrow morning, 11/11/2021 for further evaluation and management.) Additional Instructions: Take medication as prescribed. Follow-up with the [facility] orthopedic clinic tomorrow morning at 8 AM, 11/11/2021. Prescriptions: Smz/Tmp Ds Tablet [Bactrim Ds Tablet] 1 udtab PO BID #14 tablet
[2021-11-10 14:30] VITALS: BP 146/87; PULSE 85
[2021-11-10 14:35] VITALS: O2SAT 97
[2021-11-10] MEDS ORDERED: BACTRIM DS TABLET PO ONE ×2 (14:35→14:40)
--- NOTE | 2021-11-10 19:08 | XRAY ---
Indication: Pain. Fracture 1991. Comparison: None 3 view right elbow demonstrates old olecranon process/proximal ulna fracture with intact orthopedic wires. No other bony, articular, or soft tissue abnormalities.
== END 2021-11-10 14:57 | disposition home or self-care (01) ==
LOC: ED 12:51
DX: L03.113 Cellulitis of right upper limb (principal); E78.5 Hyperlipidemia, unspecified; M10.9 Gout, unspecified
CPT/HCPCS: 73080; 99283; A9270-GY

== ENCOUNTER 2022-01-25 19:33 | Emergency (ER) | payer BC, MEDICAID ==
[2022-01-25] MEDS ORDERED: MOTRIN 600 MG PO ONE (19:44)
[2022-01-25] MEDS ORDERED: MOTRIN 600 MG ONE (19:50)
--- NOTE | 2022-01-25 20:01 | ERPHSYRPT ---
- History of Present Illness Time Seen by Provider: 01/25/22 19:57 Source: patient Exam Limitations: no limitations Patient Subjective Stated Complaint: C/O pain in left elbow area. States that he was emptying some heavy trash cans approx 3 weeks ago at work and heard a loud pop from his elbow. Patient adds that he has been having intermittent numbness in both of his hands since then but that he currently has no numbness in either hand. Triage Nursing Assessment: Patient ambulated back to ED witout difficulties. He is alert and oriented and answering questions appropriately. Patient was able to take off shirts per self and put on hospital gown per self without any difficulties. Full ROM noted in BUE while changing out his shirt/gown. BUE with normal skin tone noted. Radial pulses present in bilateral wrists. Sensations to both hands/fingers WNL. No skin alterations noted to BUE; right elbow does have an old surgical scar. Physician History: C/O pain in left elbow area. States that he was emptying some heavy trash cans approx 3 weeks ago at work and heard a loud pop from his elbow. Patient adds that he has been having intermittent numbness in both of his hands since then but that he currently has no numbness in either hand. Patient was able to take off shirts per self and put on hospital gown per self without any difficulties Occurred: last week Method of Injury: twisted Quality: intermittent Severity of Pain-Max: mild Severity of Pain-Current: mild Extremities Pain Location: elbow: left, hand: bilateral (tingling and numbness) Modifying Factors: Improves With: nothing Associated Symptoms: none Allergies/Adverse Reactions: No Known Drug Allergies Allergy (Verified 01/25/22 19:39) Hx Tetanus, Diphtheria Vaccination/Date Given: Yes Hx Influenza Vaccination/Date Given: No Hx Pneumococcal Vaccination/Date Given: No Immunizations Up to Date: Yes Travel Risk - International Travel Have you traveled outside of the country in past 3 weeks: No - Coronavirus Screening Are you exhibiting any of the following symptoms?: No Close contact with a COVID-19 positive Pt in past 14-21 Days: No - Vaccine Status Have you recieved a Covid-19 vaccination: No - Review of Systems Constitutional: No Symptoms Eyes: No Symptoms Ears, Nose, & Throat: No Symptoms Respiratory: No Symptoms Cardiac: No Symptoms Abdominal/Gastrointestinal: No Symptoms Genitourinary Symptoms: No Symptoms Musculoskeletal: Neck Pain, Joint Pain, No Fall, No Joint Redness, No Joint Swelling Skin: No Symptoms - Past Medical History Pertinent Past Medical History: Yes Neurological History: No Pertinent History ENT History: No Pertinent History Cardiac History: High Cholesterol, Hypertension Respiratory History: No Pertinent History Endocrine Medical History: No Pertinent History Musculoskeletal History: No Pertinent History GI Medical History: Hernia History: No Pertinent History Psycho-Social History: No Pertinent History Male Reproductive Disorders: No Pertinent History Other Medical History: GOUT - Past Surgical History Past Surgical History: Yes Neuro Surgical History: No Pertinent History Cardiac: No Pertinent History Respiratory: No Pertinent History Gastrointestinal: Hernia Repair Genitourinary: No Pertinent History Musculoskeletal: Orthopedic Surgery Male Surgical History: No Pertinent History Other Surgical History: Right elbow 1991. Left elbow 2017 - Social History Smoking Status: Never smoker Exposure to second hand smoke: No Drug Use: none Patient Lives Alone: No - Nursing Vital Signs Nursing Vital Signs: Initial Vital Signs Temperature 96.6 F 01/25/22 19:40 Pulse Rate 88 01/25/22 19:40 Respiratory Rate 16 01/25/22 19:40 Blood Pressure 164/116 01/25/22 19:40 O2 Sat by Pulse Oximetry 97 01/25/22 19:40 Pain Scale Pain Intensity 9 - Physical Exam General Appearance: no apparent distress Eyes, Ears, Nose, Throat Exam: normal ENT inspection Neck Exam: normal inspection Cardiovascular/Respiratory Exam: chest non-tender Abdominal Exam: non-tender Back Exam: normal inspection Shoulder Exam: normal inspection Elbow/Forearm Exam: normal ROM, pain, soft tissue tenderness Wrist Exam: normal inspection, no evidence of injury Hand Exam: normal inspection, no evidence of injury Mental Status Exam: alert, oriented x 3 Skin Exam: normal color SpO2 Interpretation: normal SpO2: 97 O2 Delivery: Room Air - Course Nursing assessment & vital signs reviewed: Yes - Radiology Exams C-Spine X-ray Interpretation: Reviewed by me Elbow X-ray Interpretation: Reviewed by me Ordered Tests: Active Orders 24 hr Category Date Time Status CERVICAL SPINE (2 OR 3 VIEW) Stat Exams 01/25/22 19:43 Taken ELBOW (MINIMUM 3 VIEWS) Stat Exams 01/25/22 19:43 Taken Medication Summary Discontinued Medications Generic Name Dose Route Start Last Admin Trade Name Freq PRN Reason Stop Dose Admin Ibuprofen 600 mg 01/25/22 19:44 01/25/22 19:51 Ibuprofen 600 Mg Tablet PO 01/25/22 19:45 600 mg STAT ONE Administration Ibuprofen Confirm 01/25/22 19:50 Ibuprofen 600 Mg Tablet Administered 01/25/22 19:51 Dose 600 mg .ROUTE .STK-MED ONE - Progress Progress: improved Counseled pt/family regarding: diagnosis, need for follow-up, rad results - Departure Departure Disposition: Home Clinical Impression: Left elbow pain, Left elbow tendinitis 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 The patient was counseled regarding Diagnosis,Lab results, Imaging studies, need for follow up and when to return to the Emergency Room. Prescriptions given: Discharge Note I have spoken with the patient and/or caregivers. I have explained the patient's condition, diagnosis and treatment plan based on the information available to me at this time. I have answered the patient's and/or caregiver's questions and addressed any concerns. The patient and/or caregivers have as good understanding of the patient's diagnosis, condition and treatment plan as can be expected at this point. The vital signs have been stable. The patient's condition is stable and appropriate for discharge from the emergency department. The patient will pursue further outpatient evaluation with the primary care physician or other designated or consulting physician as outlined in the discharge instructions. The patient and/or caregivers are agreeable to this plan of care and follow-up instructions have been explained in detail. The patient and/or caregivers have received these instruction. The patient/and or caregivers are aware that any significant change in condition or worsening of symptoms should prompt an immediate return to this or the closest emergency department or call 911. GEETHA RIDDLE was seen on 01/25/22 n the Emergency Room. At that time you were treated for an emergent condition, during your visit Laboratory, Radiology and/or other procedures may have been ordered. It is very important that you follow-up with your Primary Care Physician FAUSTO GUTIERRES within the next 24-48 hours to review your Emergency Room visit and the final results of testing that was ordered. Some test results such as Urine Cultures, Blood Cultures, and other cultures if ordered will not be finalized for 24-48 hours. If you do not have a Primary Care Provider please call the medical records department at [phone] ext [phone] to obtain a copy of your results or you may sign into our patient portal to obtain these results by visiting us @ [email or web address] and completing the following steps: 1. Click on the Patient Portal link 2. Click the Patient Self Enrollment Link to complete the enrollment form and entering your 3. Once the enrollment form is completed you will receive an email with a temporary ID and password at the email address you provided. 4. Next choose a user name and password. Your user name must be at least 4 characters long and your password must be at least 4 characters long. 5. Choose a security question from the list and provide your answer to the question. If you already have signed into the Health Portal you may access your Health Care Information 08/06 by the following steps: 1. Login to our website @ [email or web address] 2. Enter your original user name and password. FAQS [facility] Portal is an online tool that contains your Lab Results, Radiology Reports, Visit History, Discharge Instructions and Health Summary Lab and Radiology Results will not be available for 72 hours on the portal. The Portal is a secure site, passwords are encryted and URLs are re-written so they cannot be copied and pasted. You and authorized family members are the only ones who can access your Portal. Also there is a timeout feature that protects your information if you leave the Portal page open. If you have technical difficulty please use the Contact Us link on the page this will allow you to submit any questions you have regarding the Portal or you may contact the Medical Record Department at [phone] ext [phone]. Prescriptions: Naproxen 500 mg [Naprosyn 500 MG] 500 mg PO BIDAC #30 tablet
[2022-01-25 20:47] VITALS: BP 119/81; PULSE 74; O2SAT 98
--- NOTE | 2022-01-26 08:08 | XRAY ---
Indication: Numbness and tingling in both arms. Comparison: CT cervical spine March 10, 2021. 3 view cervical spine unchanged again demonstrating lordotic straightening positional versus paraspinal spasm, minimal C6-C7 degenerative endplate spurring, and prominent C7 transverse processes as seen with thoracic outlet syndrome. No new/acute abnormalities.
--- NOTE | 2022-01-26 08:10 | XRAY ---
Indication: Pain. Comparison: None 3 view left elbow demonstrates small osteochondroma emanating from distal humeral shaft anterior medial aspect. No other bony, articular, or soft tissue abnormalities.
== END 2022-01-25 20:42 | disposition home or self-care (01) ==
LOC: ED 19:33
DX: M70.88 Other soft tissue disorders related to use, overuse and pressure other site (principal); M25.522 Pain in left elbow; X50.0XXA Overexertion from strenuous movement or load, initial encounter; Y99.0 Civilian activity done for income or pay; R20.2 Paresthesia of skin; E78.5 Hyperlipidemia, unspecified; I10 Essential (primary) hypertension; M10.9 Gout, unspecified
CPT/HCPCS: 72040; 73080; 99283; A9270-GY

== ENCOUNTER 2022-03-25 16:06 | Emergency (ER) | payer BC, OTHER ==
[2022-03-25] MEDS ORDERED: Sodium Chloride 0.9% 1000 ML 1,000 ML IV STA (16:44)
[2022-03-25] MEDS ORDERED: TORAdol 30 mg Injection IV ONE (16:44)
[2022-03-25 17:04] LABS: Appearance CLEAR (CLEAR); Bilirubin NEGATIVE (NEGATIVE); Glucose NEGATIVE (NEGATIVE); Ketones NEGATIVE (NEGATIVE)
[2022-03-25 17:05] LABS: Dipstick done @ ? MAIN LAB; Nitrite NEGATIVE (NEGATIVE); Protein,Urine Dip NEGATIVE (Negative); RBC NEGATIVE Ery/ul (0-5); Urobilinogen 1 mg/dL (0-1)
[2022-03-25] MEDS ORDERED: Sodium Chloride 0.9% 1000 ML 1,000 ML ONE (17:05)
[2022-03-25 17:10] LABS: Basophil (Absolute #) 0.03 (0-0.4); Eosinophil % 1.3 % (0.00-5.0); Eosinophil (Absolute #) 0.13 (0-0.5); Hematocrit 46.6 % (42-50); Hemoglobin 15.7 gm/dl (12.5-18.0); Lymphocyte (Absolute #) 3.14 (1.0-4.6); Lymphocytes % 32.5 % (24.0-44.0); Mean Cell Volume 89.4 fl (78-100); Mean Corpuscular Hemoglobin 30.1 pg (26-32); Mean Corpuscular Hgb Concent. 33.7 g/dl (32-36); Mean Platelet Volume 9.9 fl (7.5-11.0); Monocyte (Absolute #) 0.67 (0.0-1.3); Monocytes % 6.9 % (0.0-12.0); Platelet Count 308 K/mm3 (150-450); Red Blood Count 5.21 M/mm3 (4.1-5.6); Red Cell Distribution Width 13.2 % (11.5-14.0); White Blood Count 9.7 K/mm3 (4.0-10.5)
[2022-03-25] MEDS ORDERED: TORAdol 30 mg Injection ONE (17:15)
[2022-03-25 17:18] LABS: Urine Cultured Indicated? NO
[2022-03-25 17:27] LABS: ALBUMIN 4.5 g/dL (3.5-5.0); ALKALINE PHOSPHATASE 71 U/L (38-126); ANION GAP 16.6 MEQ/L (5-15); BLOOD UREA NITROGEN 16 mg/dL (9-20); CHLORIDE 102 mmol/L (98-107); Calcium 9.2 mg/dL (8.4-10.2); Carbon Dioxide 26 mmol/L (22-30); EST GLOMERULAR FILTRATION RATE > 60.0 ML/MIN; Glucose 126 mg/dL (74-106); LIPASE 96 U/L (23-300); SGOT/AST 25 U/L (17-59); SGPT/ALT 28 U/L (0-50); SODIUM 141 mmol/L (137-145); Total Protein 7.9 g/dL (6.3-8.2)
[2022-03-25 19:09] VITALS: BP 118/80; PULSE 74
[2022-03-25 19:10] VITALS: O2SAT 97
--- NOTE | 2022-03-25 19:10 | ERPHSYRPT ---
- History of Present Illness Time Seen by Provider: 03/25/22 16:25 Historian: patient Exam Limitations: no limitations Patient Subjective Stated Complaint: pt states "I have been having back pain since Thursday." Triage Nursing Assessment: pt ambulated into the er; pt is axo x4; c/o left flank pain; pt states 10/10 pain to left flank region; tenderness with palpation to left flank area; hyperctive bowel sounds in all quads; pt denies N/V/D; pt de nies troubles with urination; Physician History: Patient is a 51-year-old male presents to our ED for evaluation of left flank pain. Patient has been experiencing flank pain since Thursday. Pain is constant. No obvious hematuria. No history of kidney stones. Pain described as an ache that is localized. No radiation. Pain worse with palpation. Pain improved with rest. No chest pain or shortness of breath. No nausea vomiting or diaphoresis. No trauma no fever. Pay states he is otherwise healthy. Patient voices no other complaints or concerns at this time. Timing/Duration: day(s) (4 days) Activities at Onset: none Quality: aching Abdominal Pain Onset Location: other (Left flank) Pain Radiation: no radiation Severity of Pain-Max: moderate Severity of Pain-Current: mild Modifying Factors: Improves With: palpation Associated Symptoms: denies symptoms Previous symptoms: no prior history Allergies/Adverse Reactions: No Known Drug Allergies Allergy (Verified 03/25/22 16:17) Home Medications: No Reportable Medications [No Reported Medications] 03/25/22 [History] Hx Tetanus, Diphtheria Vaccination/Date Given: Yes Hx Influenza Vaccination/Date Given: No Hx Pneumococcal Vaccination/Date Given: No Immunizations Up to Date: No Travel Risk - International Travel Have you traveled outside of the country in past 3 weeks: No - Coronavirus Screening Are you exhibiting any of the following symptoms?: No Close contact with a COVID-19 positive Pt in past 14-21 Days: No - Vaccine Status Have you recieved a Covid-19 vaccination: No - Review of Systems Constitutional: No Symptoms, No Fever, No Chills Eyes: No Symptoms Ears, Nose, & Throat: No Symptoms Respiratory: No Symptoms, No Cough, No Dyspnea Cardiac: No Symptoms, No Chest Pain, No Edema, No Syncope Abdominal/Gastrointestinal: No Symptoms, No Abdominal Pain, No Nausea, No Vomiting, No Diarrhea Genitourinary Symptoms: No Symptoms, No Dysuria Musculoskeletal: No Symptoms, No Back Pain, No Neck Pain Skin: No Symptoms, No Rash Neurological: No Symptoms, No Dizziness, No Focal Weakness, No Sensory Changes Psychological: No Symptoms Endocrine: No Symptoms Hematologic/Lymphatic: No Symptoms Immunological/Allergic: No Symptoms All Other Systems: Reviewed and Negative - Past Medical History Pertinent Past Medical History: Yes Neurological History: No Pertinent History ENT History: No Pertinent History Cardiac History: High Cholesterol, Hypertension Respiratory History: No Pertinent History Endocrine Medical History: No Pertinent History Musculoskeletal History: No Pertinent History GI Medical History: Hernia History: No Pertinent History Psycho-Social History: No Pertinent History Male Reproductive Disorders: No Pertinent History Other Medical History: GOUT - Past Surgical History Past Surgical History: Yes Neuro Surgical History: No Pertinent History Cardiac: No Pertinent History Respiratory: No Pertinent History Gastrointestinal: Hernia Repair Genitourinary: No Pertinent History Musculoskeletal: Orthopedic Surgery Male Surgical History: No Pertinent History Other Surgical History: Right elbow 1991. Left elbow 2017 - Social History Smoking Status: Former smoker Exposure to second hand smoke: No Drug Use: none Patient Lives Alone: No - Nursing Vital Signs Nursing Vital Signs: Initial Vital Signs Temperature 97.2 F 03/25/22 16:17 Pulse Rate 103 H 03/25/22 16:17 Respiratory Rate 18 03/25/22 16:17 Blood Pressure 136/94 03/25/22 16:17 O2 Sat by Pulse Oximetry 95 03/25/22 16:17 Pain Scale Pain Intensity 9 - Physical Exam General Appearance: no apparent distress, alert Eye Exam: PERRL/EOMI, eyes nml inspection Ears, Nose, Throat Exam: normal ENT inspection, pharynx normal, moist mucous membranes Neck Exam: normal inspection, non-tender, supple, full range of motion Respiratory Exam: normal breath sounds, lungs clear, No respiratory distress Cardiovascular Exam: regular rate/rhythm, normal heart sounds Gastrointestinal/Abdomen Exam: soft, other (Tenderness to palpation left flank. Overlying soft tissue intact. No signs of trauma.), No tenderness, No mass Back Exam: normal inspection, normal range of motion, No CVA tenderness, No vertebral tenderness Extremity Exam: normal inspection, normal range of motion, pelvis stable Neurologic Exam: alert, oriented x 3, cooperative, normal mood/affect, nml cerebellar function, sensation nml, No motor deficits Skin Exam: normal color, warm, dry Lymphatic Exam: No adenopathy SpO2 Interpretation: normal SpO2: 97 O2 Delivery: Room Air - Course Nursing assessment & vital signs reviewed: Yes - CT Exams Abdomen/Pelvis CT Interpretation: Tele-radiologist Report (No comps. Negative renal stone or evidence of obstructive uropathy. Normal appendix. Fatty liver. Remaining abdomen pelvis negative. Incidental moderate fatty bilateral inguinal hernias.) Ordered Tests: Active Orders 24 hr Category Date Time Status IV Insertion STAT Care 03/25/22 16:44 Active ABDOMEN AND PELVIS W/0 CONTRAS [CT] Stat Exams 03/25/22 16:44 Taken CBC W DIFF Stat Lab 03/25/22 16:50 Completed CMP Stat Lab 03/25/22 16:50 Completed LIPASE Stat Lab 03/25/22 16:50 Completed TROPONIN Q3H Lab 03/25/22 16:50 Completed TROPONIN Q3H Lab 03/25/22 19:45 Ordered TROPONIN Q3H Lab 03/25/22 22:45 Ordered TROPONIN Q3H Lab 03/26/22 01:45 Ordered TROPONIN Q3H Lab 03/26/22 04:45 Ordered UA W/RFX CULTURE Stat Lab 03/25/22 17:00 Completed Medication Summary Discontinued Medications Generic Name Dose Route Start Last Admin Trade Name Freq PRN Reason Stop Dose Admin Sodium Chloride 1,000 mls @ 999 mls/hr 03/25/22 16:44 03/25/22 18:08 Sodium Chloride 0.9% 1000 Ml IV 03/25/22 17:44 Infused .Q1H1M STA Infusion Sodium Chloride Confirm 03/25/22 17:05 Sodium Chloride 0.9% 1000 Ml Administered 03/25/22 17:06 Dose 1,000 mls @ ud .ROUTE .STK-MED ONE Ketorolac Tromethamine 30 mg 03/25/22 16:44 03/25/22 17:16 Ketorolac Tromethamine 30 Mg/Ml Inj IV 03/25/22 16:45 30 mg STAT ONE Administration Ketorolac Tromethamine Confirm 03/25/22 17:15 Ketorolac Tromethamine 30 Mg/Ml Inj Administered 03/25/22 17:16 Dose 30 mg .ROUTE .STK-MED ONE Lab/Rad Data: Laboratory Result Diagrams 03/25/22 16:50 03/25/22 16:50 Laboratory Results 03/25/22 03/25/22 03/25/22 Range/Units 17:00 16:50 16:50 WBC (4.0-10.5) K/mm3 RBC (4.1-5.6) M/mm3 Hgb (12.5-18.0) gm/dl Hct (42-50) % MCV (78-100) fl MCH (26-32) pg MCHC (32-36) g/dl RDW (11.5-14.0) % Plt Count (150-450) K/mm3 MPV (7.5-11.0) fl Gran % (36.0-66.0) % Eos # (Auto) (0-0.5) Absolute Lymphs (auto) (1.0-4.6) Absolute Monos (auto) (0.0-1.3) Lymphocytes % (24.0-44.0) % Monocytes % (0.0-12.0) % Eosinophils % (0.00-5.0) % Basophils % (0.0-0.4) % Absolute Granulocytes (1.4-6.9) Basophils # (0-0.4) Sodium 141 (137-145) mmol/L Potassium 4.0 (3.5-5.1) mmol/L Chloride 102 (98-107) mmol/L Carbon Dioxide 26 (22-30) mmol/L Anion Gap 16.6 H (5-15) MEQ/L BUN 16 (9-20) mg/dL Creatinine 1.10 (0.66-1.25) mg/dL Estimated GFR > 60.0 ML/MIN Glucose 126 H (74-106) mg/dL Calcium 9.2 (8.4-10.2) mg/dL Total Bilirubin 1.30 (0.2-1.3) mg/dL AST 25 (17-59) U/L ALT 28 (0-50) U/L Alkaline Phosphatase 71 (38-126) U/L Troponin I < 0.012 (0.000-0.034) ng/mL Serum Total Protein 7.9 (6.3-8.2) g/dL Albumin 4.5 (3.5-5.0) g/dL Lipase 96 (23-300) U/L Urinalys Dipstick Clnc MAIN LAB Urine Color YELLOW (YELLOW) Urine Appearance CLEAR (CLEAR) Urine pH 7.0 (5-6) Ur Specific [place] 1.020 (1.005-1.025) POC Urine Protein Conf NEGATIVE (Negative) Urine Ketones NEGATIVE (NEGATIVE) Urine Nitrite NEGATIVE (NEGATIVE) Urine Bilirubin NEGATIVE (NEGATIVE) Urine Urobilinogen 1 (0-1) mg/dL Urine Leukocytes NEGATIVE (NEGATIVE) Urine WBC (Auto) NONE (0-5) /HPF Urine RBC (Auto) NONE (0-2) /HPF U Epithel Cells (Auto) NONE (FEW) /HPF Urine Bacteria (Auto) NONE (NEGATIVE) /HPF Urine RBC NEGATIVE (0-5) [place]/ul Ur Culture Indicated? NO Urine Glucose NEGATIVE (NEGATIVE) mg/dL 03/25/22 Range/Units 16:50 WBC 9.7 (4.0-10.5) K/mm3 RBC 5.21 (4.1-5.6) M/mm3 Hgb 15.7 (12.5-18.0) gm/dl Hct 46.6 (42-50) % MCV 89.4 (78-100) fl MCH 30.1 (26-32) pg MCHC 33.7 (32-36) g/dl RDW 13.2 (11.5-14.0) % Plt Count 308 (150-450) K/mm3 MPV 9.9 (7.5-11.0) fl Gran % 59.0 (36.0-66.0) % Eos # (Auto) 0.13 (0-0.5) Absolute Lymphs (auto) 3.14 (1.0-4.6) Absolute Monos (auto) 0.67 (0.0-1.3) Lymphocytes % 32.5 (24.0-44.0) % Monocytes % 6.9 (0.0-12.0) % Eosinophils % 1.3 (0.00-5.0) % Basophils % 0.3 (0.0-0.4) % Absolute Granulocytes 5.70 (1.4-6.9) Basophils # 0.03 (0-0.4) Sodium (137-145) mmol/L Potassium (3.5-5.1) mmol/L Chloride (98-107) mmol/L Carbon Dioxide (22-30) mmol/L Anion Gap (5-15) MEQ/L BUN (9-20) mg/dL Creatinine (0.66-1.25) mg/dL Estimated GFR ML/MIN Glucose (74-106) mg/dL Calcium (8.4-10.2) mg/dL Total Bilirubin (0.2-1.3) mg/dL AST (17-59) U/L ALT (0-50) U/L Alkaline Phosphatase (38-126) U/L Troponin I (0.000-0.034) ng/mL Serum Total Protein (6.3-8.2) g/dL Albumin (3.5-5.0) g/dL Lipase (23-300) U/L Urinalys Dipstick Clnc Urine Color (YELLOW) Urine Appearance (CLEAR) Urine pH (5-6) Ur Specific [place] (1.005-1.025) POC Urine Protein Conf (Negative) Urine Ketones (NEGATIVE) Urine Nitrite (NEGATIVE) Urine Bilirubin (NEGATIVE) Urine Urobilinogen (0-1) mg/dL Urine Leukocytes (NEGATIVE) Urine WBC (Auto) (0-5) /HPF Urine RBC (Auto) (0-2) /HPF U Epithel Cells (Auto) (FEW) /HPF Urine Bacteria (Auto) (NEGATIVE) /HPF Urine RBC (0-5) [place]/ul Ur Culture Indicated? Urine Glucose (NEGATIVE) mg/dL - Progress Progress: improved Progress Note: Patient reassessed. He feels well. CT abdomen pelvis negative for obstructive uropathy/ureterolithiasis. Laboratory work-up negative. Patient reassessed. Pain resolved. UA negative no indication for further work-up at this time. He states he is ready for discharge. Will discharge home. Patient agrees to follow-up with a primary care doctor within 48 hours for evaluation. Portions of this note were created with voice recognition technology. There may be grammatical, spelling, punctuation or sound alike errors 03/25/22 19:13 Counseled pt/family regarding: lab results, diagnosis, need for follow-up, rad results - Departure Departure Disposition: Home Clinical Impression: Flank pain, Fatty liver, Fatty bilateral inguinal hernias Condition: Stable Critical Care Time: No Referrals: FAUSTO GUTIERRES MD [Primary Care Provider] - Follow up/PCP as directed Additional Instructions: Discharge/Care Plan GEETHA RIDDLE was seen on 03/25/22 in the Emergency Room. The patient was counseled regarding Diagnosis,Lab results, Imaging studies, need for follow up and when to return to the Emergency Room. Prescriptions given: Discharge Note I have spoken with the patient and/or caregivers. I have explained the patient's condition, diagnosis and treatment plan based on the information available to me at this time. I have answered the patient's and/or caregiver's questions and addressed any concerns. The patient and/or caregivers have as good understanding of the patient's diagnosis, condition and treatment plan as can be expected at this point. The vital signs have been stable. The patient's condition is stable and appropriate for discharge from the emergency department. The patient will pursue further outpatient evaluation with the primary care physician or other designated or consulting physician as outlined in the discharge instructions. The patient and/or caregivers are agreeable to this plan of care and follow-up instructions have been explained in detail. The patient and/or caregivers have received these instruction. The patient/and or caregivers are aware that any significant change in condition or worsening of symptoms should prompt an immediate return to this or the closest emergency department or call 911.
--- NOTE | 2022-03-26 08:42 | XRAY ---
Indication: Left flank pain 1 week. Multiple contiguous axial images obtained through the abdomen and pelvis without contrast using renal stone protocol. Comparison: None Lung bases demonstrates minimal left base fibrosis/scarring. No infiltrate or effusion. Heart not enlarged. No renal calculus or evidence for obstructive uropathy in either system. Stomach is distended with food/fluid. Noncontrasted stomach and bowel loops appear nonobstructed with normal appendix. Gallbladder contracted without gallstones. No free fluid/air. Diffuse fatty liver. Remaining liver, gallbladder, pancreas, spleen, adrenal glands, kidneys, ureters, bladder, and aorta are unremarkable for noncontrast exam. Osseous structures intact with L4-L5 degenerative disc disease/degenerative vacuum disc phenomena. Moderate sized bilateral fatty inguinal hernias. Impression: 1. Negative renal calculus or evidence for obstructive uropathy. 2. Fatty liver, L4-L5 degenerative disc disease, and bilateral fatty inguinal hernias. 3. Remaining CT abdomen/pelvis without contrast exam is negative.
== END 2022-03-25 19:22 | disposition home or self-care (01) ==
LOC: ED 16:06
DX: K76.0 Fatty (change of) liver, not elsewhere classified (principal); K40.20 Bilateral inguinal hernia, without obstruction or gangrene, not specified as recurrent; R10.9 Unspecified abdominal pain; E78.5 Hyperlipidemia, unspecified; I10 Essential (primary) hypertension
CPT/HCPCS: 36000; 36415; 74176; 80053; 81015; 83690; 84484; 85025; 96360; 96374; 99284; J1885

== ENCOUNTER 2022-05-27 08:56 | Emergency (ER) | payer OTHER ==
--- NOTE | 2022-05-27 09:49 | XRAY ---
Indication: Pain and swelling 3 days. No known injury. Comparison: None 3 view left wrist demonstrates mild widening scapholunate interval concerning for underlying ligamentous tear. No other bony, articular, or soft tissue abnormalities.
--- NOTE | 2022-05-27 09:59 | ERPHSYRPT ---
- History of Present Illness Time Seen by Provider: 05/27/22 09:15 Source: patient Exam Limitations: no limitations Patient Subjective Stated Complaint: C/O pain in left wrist since . Denies any falls or injuries. States the wrist was red and hot before but that is gone now. Pain has not gotten any better. Patient with a history of gout. Triage Nursing Assessment: Patient ambulated back to ED gaurding left wrist. He is alert and oriented. No swelling or skin alterations noted to left wrist. Radial pulse present. CMS checks to fingers WNL. Physician History: Patient is a 51-year-old white male who presents with a complaint of pain in the left wrist. The pain started or 6 days ago. He has absolutely no history of any injury he does have a history of gout. He has had gout attacks in multiple joints but never in the left wrist. His gout is untreated. Occurred: days ago (6) Quality: aching, throbbing Severity of Pain-Max: moderate Severity of Pain-Current: moderate Extremities Pain Location: wrist: left Modifying Factors: Improves With: movement Associated Symptoms: none Allergies/Adverse Reactions: No Known Drug Allergies Allergy (Verified 05/27/22 09:06) Hx Tetanus, Diphtheria Vaccination/Date Given: Yes Hx Influenza Vaccination/Date Given: No Hx Pneumococcal Vaccination/Date Given: No Immunizations Up to Date: Yes Travel Risk - International Travel Have you traveled outside of the country in past 3 weeks: No - Coronavirus Screening Are you exhibiting any of the following symptoms?: No Close contact with a COVID-19 positive Pt in past 14-21 Days: No - Vaccine Status Have you recieved a Covid-19 vaccination: No - Review of Systems Constitutional: No Fever, No Chills Eyes: No Symptoms Ears, Nose, & Throat: No Symptoms Respiratory: No Cough, No Dyspnea Cardiac: No Chest Pain, No Edema, No Syncope Abdominal/Gastrointestinal: No Abdominal Pain, No Nausea, No Vomiting, No Diarrhea Genitourinary Symptoms: No Dysuria Musculoskeletal: Joint Pain, Joint Swelling, No Back Pain, No Neck Pain Skin: No Rash Neurological: No Dizziness, No Focal Weakness, No Sensory Changes Psychological: No Symptoms Endocrine: No Symptoms All Other Systems: Reviewed and Negative - Past Medical History Pertinent Past Medical History: Yes Neurological History: No Pertinent History ENT History: No Pertinent History Cardiac History: High Cholesterol, Hypertension Respiratory History: No Pertinent History Endocrine Medical History: No Pertinent History Musculoskeletal History: Fractures GI Medical History: Hernia History: No Pertinent History Psycho-Social History: No Pertinent History Male Reproductive Disorders: No Pertinent History Other Medical History: GOUT - Past Surgical History Past Surgical History: Yes Neuro Surgical History: No Pertinent History Cardiac: No Pertinent History Respiratory: No Pertinent History Gastrointestinal: Hernia Repair Genitourinary: No Pertinent History Musculoskeletal: Orthopedic Surgery Male Surgical History: No Pertinent History Other Surgical History: Right elbow 1991. Left elbow 2017 - Social History Smoking Status: Never smoker Exposure to second hand smoke: No Drug Use: none Patient Lives Alone: No - Nursing Vital Signs Nursing Vital Signs: Initial Vital Signs Temperature 97.4 F 05/27/22 09:07 Pulse Rate 68 05/27/22 09:07 Respiratory Rate 18 05/27/22 09:07 Blood Pressure 135/96 05/27/22 09:07 O2 Sat by Pulse Oximetry 96 05/27/22 09:07 Pain Scale Pain Intensity [] 10 Pain Intensity 10 - Physical Exam General Appearance: alert Eyes, Ears, Nose, Throat Exam: moist mucous membranes Neck Exam: non-tender, supple Cardiovascular/Respiratory Exam: chest non-tender, normal breath sounds, regular rate/rhythm, no respiratory distress Abdominal Exam: non-tender, No guarding Back Exam: normal inspection, No vertebral tenderness Shoulder Exam: normal inspection, non-tender Elbow/Forearm Exam: normal inspection, non-tender Wrist Exam: bone tenderness, limited ROM, pain, soft tissue tenderness, swelling (Pain swelling tenderness in the left wrist.) Hand Exam: normal inspection, non-tender, no evidence of injury Neuro/Tendon Exam: normal sensation, normal motor functions Mental Status Exam: alert, oriented x 3, cooperative Skin Exam: normal color, warm, dry SpO2 Interpretation: normal SpO2: 96 O2 Delivery: Room Air - Course Nursing assessment & vital signs reviewed: Yes - Radiology Exams Left Wrist X-ray Interpretation: Reviewed by me, Other (Slight widening of the scaphoid lunate space worrisome for ligamentous tear) Ordered Tests: Active Orders 24 hr Category Date Time Status WRIST (MIN 3 VIEWS) Stat Exams 05/27/22 09:21 Completed CBC W DIFF Stat Lab 05/27/22 09:58 Completed SED RATE [Erythrocyte Sedimentation Rate] Stat Lab 05/27/22 09:58 Received Uric Acid Stat Lab 05/27/22 09:58 Completed Lab/Rad Data: Laboratory Result Diagrams 05/27/22 09:58 Laboratory Results 05/27/2212 Range/Units 09:58 09:58 WBC 4.6 (4.0-10.5) x10^3/uL RBC 4.62 (4.1-5.6) x10^6/uL Hgb 13.9 (12.5-18.0) g/dL Hct 42.8 (42-50) % MCV 92.6 (78-100) fL MCH 30.1 (26-32) pg MCHC 32.5 (32-36) g/dL RDW 12.9 (11.5-14.0) % Plt Count 250 (150-450) x10^3/uL MPV 9.2 (7.5-11.0) fL Gran % 43.3 (36.0-66.0) % Immature Gran % (Auto) 0.4 (0.00-0.4) % Nucleat RBC Rel Count 0.0 (0.00-0.1) % Eos # (Auto) 0.11 (0-0.5) x10^3/uL Immature Gran # (Auto) 0.02 (0.00-0.03) x10^3u/L Absolute Lymphs (auto) 2.04 (1.0-4.6) x10^3/uL Absolute Monos (auto) 0.37 (0.0-1.3) x10^3/uL Absolute Nucleated RBC 0.00 (0.00-0.01) x10^3u/L Lymphocytes % 44.7 H (24.0-44.0) % Monocytes % 8.1 (0.0-12.0) % Eosinophils % 2.4 (0.00-5.0) % Basophils % 1.1 (0.0-0.4) % Absolute Granulocytes 1.97 (1.4-6.9) x10^3/uL Basophils # 0.05 (0-0.4) x10^3/uL Uric Acid 10.4 H (3.5-7.2) mg/dL - Progress Progress: unchanged - Departure Departure Disposition: Home Clinical Impression: Acute gouty arthritis Condition: Stable Critical Care Time: No Referrals: FAUSTO GUTIERRES MD [Primary Care Provider] - Follow up/PCP as directed Prescriptions: Prednisone 10 mg [Deltasone 10 mg] 10 mg PO TID 5 Days #15 tablet
[2022-05-27 10:03] LABS: Absolute Neutrophil Ct (ANC) 1.97 x10^3/uL (1.4-6.9); Basophil (Absolute #) 0.05 x10^3/uL (0-0.4); Eosinophil % 2.4 % (0.00-5.0); Eosinophil (Absolute #) 0.11 x10^3/uL (0-0.5); Hematocrit 42.8 % (42-50); Hemoglobin 13.9 g/dL (12.5-18.0); Lymphocyte (Absolute #) 2.04 x10^3/uL (1.0-4.6); Lymphocytes % 44.7 % (24.0-44.0); Mean Cell Volume 92.6 fL (78-100); Mean Corpuscular Hemoglobin 30.1 pg (26-32); Mean Corpuscular Hgb Concent. 32.5 g/dL (32-36); Mean Platelet Volume 9.2 fL (7.5-11.0); Monocyte (Absolute #) 0.37 x10^3/uL (0.0-1.3); Monocytes % 8.1 % (0.0-12.0); Neutrophil % 43.3 % (36.0-66.0); Platelet Count 250 x10^3/uL (150-450); Red Blood Count 4.62 x10^6/uL (4.1-5.6); Red Cell Distribution Width 12.9 % (11.5-14.0); White Blood Count 4.6 x10^3/uL (4.0-10.5)
[2022-05-27] MEDS ORDERED: solu-MEDROL ONE (10:54)
[2022-05-27] MEDS ORDERED: solu-MEDROL 125 MG, Sterile H2O 10 ml 2 ML IM ONE ×2 (10:55)
[2022-05-27 11:21] VITALS: BP 133/92; PULSE 54; O2SAT 96
== END 2022-05-27 11:20 | disposition home or self-care (01) ==
LOC: ED 08:56
DX: M10.9 Gout, unspecified (principal); M25.532 Pain in left wrist; E78.5 Hyperlipidemia, unspecified; I10 Essential (primary) hypertension; Z28.310 Unvaccinated for COVID-19; Z79.52 Long term (current) use of systemic steroids
CPT/HCPCS: 36415; 73110; 84550; 85025; 85652; 96372; 99283; J2930; L3908

== ENCOUNTER 2022-07-19 22:52 | Emergency (ER) | payer OTHER ==
[2022-07-19] MEDS ORDERED: solu-MEDROL 125 MG, Sterile H2O 10 ml 2 ML IM ONE ×2 (23:21)
[2022-07-19] MEDS ORDERED: Rocephin 1000 MG INJ IM ONE (23:21)
--- NOTE | 2022-07-19 23:21 | ERPHSYRPT ---
- History of Present Illness Time Seen by Provider: 07/19/22 23:10 Source: patient, family Exam Limitations: no limitations Patient Subjective Stated Complaint: pt states he has been having pain in his lt foot. pain is described as sharp and worse when bearing weight. Triage Nursing Assessment: pt alert and oriented, answers questions approp. pt ambulatory with limping gait noted. respirations nonlabored. skin warm and dry. mild swelling noted to lt foot and ankle. redness and warmth noted to top of lt foot. pedal pulse and cap refill wnl. Physician History: This is a 51-year-old obese white male patient of Dr. Gutierres who has a history of gout presents with a 2-day history of worsening skin redness swelling and tenderness with associated warmth of the dorsal aspect of his left foot. He sustained no injury. He is not diabetic. Even today he noticed worsening redness. Timing/Duration: day(s) (2) Quality: painful Severity: mild Location: feet (Dorsal aspect left foot) Possible Causes: other Associated Symptoms: denies symptoms Allergies/Adverse Reactions: No Known Drug Allergies Allergy (Verified 07/19/22 23:09) Home Medications: Allopurinol 100 mg [Zyloprim 100 mg] 100 mg PO DAILY 07/19/22 [History] Hx Tetanus, Diphtheria Vaccination/Date Given: Yes Hx Influenza Vaccination/Date Given: No Hx Pneumococcal Vaccination/Date Given: No Immunizations Up to Date: Yes Travel Risk - International Travel Have you traveled outside of the country in past 3 weeks: No - Coronavirus Screening Are you exhibiting any of the following symptoms?: No Close contact with a COVID-19 positive Pt in past 14-21 Days: No - Vaccine Status Have you recieved a Covid-19 vaccination: No - Review of Systems Constitutional: No Symptoms Eyes: No Symptoms Ears, Nose, & Throat: No Symptoms Respiratory: No Symptoms Cardiac: No Symptoms Abdominal/Gastrointestinal: No Symptoms Genitourinary Symptoms: No Symptoms Musculoskeletal: No Symptoms Skin: Cellulitis (Dorsal aspect left foot) Neurological: No Symptoms Psychological: No Symptoms Endocrine: No Symptoms Hematologic/Lymphatic: No Symptoms Immunological/Allergic: No Symptoms All Other Systems: Reviewed and Negative - Past Medical History Pertinent Past Medical History: Yes Neurological History: No Pertinent History ENT History: No Pertinent History Cardiac History: High Cholesterol, Hypertension Respiratory History: No Pertinent History Endocrine Medical History: No Pertinent History Musculoskeletal History: Fractures GI Medical History: Hernia History: No Pertinent History Psycho-Social History: No Pertinent History Male Reproductive Disorders: No Pertinent History Other Medical History: GOUT - Past Surgical History Past Surgical History: Yes Neuro Surgical History: No Pertinent History Cardiac: No Pertinent History Respiratory: No Pertinent History Gastrointestinal: Hernia Repair Genitourinary: No Pertinent History Musculoskeletal: Orthopedic Surgery Male Surgical History: No Pertinent History Other Surgical History: Right elbow 1991. Left elbow 2017 - Social History Smoking Status: Never smoker Exposure to second hand smoke: No Drug Use: none Patient Lives Alone: No - Nursing Vital Signs Nursing Vital Signs: Initial Vital Signs Temperature 97.3 F 07/19/22 22:59 Pulse Rate 83 07/19/22 22:59 Respiratory Rate 16 07/19/22 22:59 Blood Pressure 151/111 07/19/22 22:59 O2 Sat by Pulse Oximetry 96 07/19/22 22:59 Pain Scale Pain Intensity 10 - Physical Exam General Appearance: no apparent distress, alert Eye Exam: PERRL/EOMI, eyes nml inspection Ears, Nose, Throat Exam: normal ENT inspection, moist mucous membranes Neck Exam: normal inspection, non-tender, supple, full range of motion Respiratory Exam: airway intact, No chest tenderness, No respiratory distress Cardiovascular Exam: normal peripheral pulses Gastrointestinal/Abdomen Exam: No tenderness Rectal Exam: not done Back Exam: normal inspection, normal range of motion, No CVA tenderness, No vertebral tenderness Extremity Exam: normal inspection, normal range of motion, pelvis stable Neurologic Exam: alert, oriented x 3, cooperative, 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 Palpable pedal pulses are strong) Lymphatic Exam: No adenopathy SpO2 Interpretation: normal SpO2: 96 O2 Delivery: Room Air - Course Nursing assessment & vital signs reviewed: Yes - Progress Progress: unchanged Counseled pt/family regarding: diagnosis, need for follow-up - Departure Departure Disposition: Home Clinical Impression: Cellulitis of left foot Condition: Stable Critical Care Time: No Referrals: FAUSTO GUTIERRES MD [Primary Care Provider] - Follow up/PCP as directed Additional Instructions: Keep foot clean. Elevate left foot above the level of your heart when not ambulating. Take antibiotics as prescribed. Call your primary doctor's office on 07/22/2022 to make arrange for follow-up appointment for reevaluation Prescriptions: Smz/Tmp Ds Tablet [Bactrim Ds Tablet] 1 udtab PO BID #14 tablet
[2022-07-19] MEDS ORDERED: Sterile H2O 10 ml IJ ONE (23:56)
[2022-07-19] MEDS ORDERED: solu-MEDROL ONE (23:56)
[2022-07-19] MEDS ORDERED: Rocephin 1000 MG INJ ONE (23:57)
[2022-07-20 01:03] VITALS: BP 141/110; PULSE 84; O2SAT 98
== END 2022-07-20 00:31 | disposition home or self-care (01) ==
LOC: ED 22:52
DX: L03.116 Cellulitis of left lower limb (principal); M79.672 Pain in left foot; E78.5 Hyperlipidemia, unspecified; I10 Essential (primary) hypertension; Z79.899 Other long term (current) drug therapy; Z28.310 Unvaccinated for COVID-19
CPT/HCPCS: 96372; 99283; J0696; J2930

== ENCOUNTER 2022-07-22 19:23 | Emergency (ER) | payer OTHER ==
[2022-07-22 19:35] VITALS: BP 139/97
--- NOTE | 2022-07-22 19:46 | ERPHSYRPT ---
- History of Present Illness Time Seen by Provider: 07/22/22 19:40 Source: patient Exam Limitations: no limitations Physician History: Patient a 51-year-old male presents to our ED for a checkup on the cellulitis. Patient was in our ED 3 days ago for the same. Patient was diagnosed with cellulitis. Patient was started antibiotics. He has been taking his antibiotics as prescribed. Patient states that his significant other felt the area of cellulitis appeared more red than normal. This observation was made this morning. She is at the bedside now and states that it looks back to its baseline. The cellulitis is improving. No lymphangitis. No fever. No other complaints. No associated trauma. They voiced no other complaints or concerns at this time. Portions of this note were created with voice recognition technology. There may be grammatical, spelling, punctuation or sound alike errors Timing/Duration: today Severity: moderate Modifying Factors: Improves With: nothing Associated Symptoms: denies symptoms Allergies/Adverse Reactions: No Known Drug Allergies Allergy (Verified 07/19/22 23:09) Home Medications: Allopurinol 100 mg [Zyloprim 100 mg] 100 mg PO DAILY 07/19/22 [History] Hx Tetanus, Diphtheria Vaccination/Date Given: Yes Hx Influenza Vaccination/Date Given: No Hx Pneumococcal Vaccination/Date Given: No Travel Risk - Vaccine Status Have you recieved a Covid-19 vaccination: No - Review of Systems Constitutional: No Symptoms, No Fever, No Chills Eyes: No Symptoms Ears, Nose, & Throat: No Symptoms Respiratory: No Symptoms, No Cough, No Dyspnea Cardiac: No Symptoms, No Chest Pain, No Edema, No Syncope Abdominal/Gastrointestinal: No Symptoms, No Abdominal Pain, No Nausea, No Vomiting, No Diarrhea Genitourinary Symptoms: No Symptoms, No Dysuria Musculoskeletal: No Symptoms, No Back Pain, No Neck Pain Skin: No Symptoms, No Rash Neurological: No Symptoms, No Dizziness, No Focal Weakness, No Sensory Changes Psychological: No Symptoms Endocrine: No Symptoms Hematologic/Lymphatic: No Symptoms Immunological/Allergic: No Symptoms All Other Systems: Reviewed and Negative - Past Medical History Pertinent Past Medical History: Yes Neurological History: No Pertinent History ENT History: No Pertinent History Cardiac History: High Cholesterol, Hypertension Respiratory History: No Pertinent History Endocrine Medical History: No Pertinent History Musculoskeletal History: Fractures GI Medical History: Hernia History: No Pertinent History Psycho-Social History: No Pertinent History Male Reproductive Disorders: No Pertinent History Other Medical History: GOUT - Past Surgical History Past Surgical History: Yes Neuro Surgical History: No Pertinent History Cardiac: No Pertinent History Respiratory: No Pertinent History Gastrointestinal: Hernia Repair Genitourinary: No Pertinent History Musculoskeletal: Orthopedic Surgery Male Surgical History: No Pertinent History Other Surgical History: Right elbow 1991. Left elbow 2017 - Social History Smoking Status: Never smoker Exposure to second hand smoke: No Drug Use: none Patient Lives Alone: No - Nursing Vital Signs Nursing Vital Signs: Initial Vital Signs Temperature 98.2 F 07/22/22 19:32 Pulse Rate 85 07/22/22 19:32 Respiratory Rate 18 07/22/22 19:32 Blood Pressure 139/97 07/22/22 19:32 O2 Sat by Pulse Oximetry 95 07/22/22 19:32 Pain Scale Pain Intensity 9 - Physical Exam General Appearance: no apparent distress, alert Eye Exam: PERRL/EOMI, eyes nml inspection Ears, Nose, Throat Exam: normal ENT inspection, TMs normal, pharynx normal, moist mucous membranes Neck Exam: normal inspection, non-tender, supple, full range of motion Respiratory Exam: normal breath sounds, lungs clear, No respiratory distress Cardiovascular Exam: regular rate/rhythm, normal heart sounds, normal peripheral pulses Gastrointestinal/Abdomen Exam: soft, normal bowel sounds, No tenderness, No mass Back Exam: normal inspection, normal range of motion, No CVA tenderness, No v ertebral tenderness Extremity Exam: normal inspection, normal range of motion, pelvis stable, other (Left lower extremity/foot cellulitis. Particularly at the dorsal aspect. No lymphangitis. Compartments are soft. Cap refill less than 2 seconds. PT DP pulse palpable. Foot is well-perfused pink.) Neurologic Exam: alert, oriented x 3, cooperative, normal mood/affect, nml cerebellar function, nml station & gait, sensation nml, No motor deficits Skin Exam: normal color, warm, dry, No rash Lymphatic Exam: No adenopathy SpO2 Interpretation: normal SpO2: 95 O2 Delivery: Room Air - Course Nursing assessment & vital signs reviewed: Yes - Progress Progress: improved Progress Note: Patient reassessed. Patient's cellulitis appears to be improving. The nurse that evaluated patient 2 days ago was also here. She states that it is improving. Patient feels it is improving. No indication for further work-up at this time. The wound is localized. No lymphangitis. No fever. No evidence of systemic manifestation. Patient agrees to follow-up with his primary care doctor on Thursday for reevaluation. He voices no other complaints or concerns at this time. Portions of this note were created with voice recognition technology. There may be grammatical, spelling, punctuation or sound alike errors 07/22/22 19:44 Counseled pt/family regarding: diagnosis, need for follow-up - Departure Departure Disposition: Home Clinical Impression: Routine check-up, Cellulitis Condition: Stable Critical Care Time: No Referrals: FAUSTO GUTIERRES MD [Primary Care Provider] - Follow up/PCP as directed Additional Instructions: Discharge/Care Plan GEETHA RIDDLE was seen on 07/22/22 in the Emergency Room. The patient was counseled regarding Diagnosis,Lab results, Imaging studies, need for follow up and when to return to the Emergency Room. Prescriptions given: Discharge Note I have spoken with the patient and/or caregivers. I have explained the patient's condition, diagnosis and treatment plan based on the information available to me at this time. I have answered the patient's and/or caregiver's questions and addressed any concerns. The patient and/or caregivers have as good understanding of the patient's diagnosis, condition and treatment plan as can be expected at this point. The vital signs have been stable. The patient's condition is stable and appropriate for discharge from the emergency department. The patient will pursue further outpatient evaluation with the primary care physician or other designated or consulting physician as outlined in the discharge instructions. The patient and/or caregivers are agreeable to this plan of care and follow-up instructions have been explained in detail. The patient and/or caregivers have received these instruction. The patient/and or caregivers are aware that any significant change in condition or worsening of symptoms should prompt an immediate return to this or the closest emergency department or call 911.
[2022-07-22 19:52] VITALS: PULSE 71; O2SAT 98
== END 2022-07-22 19:52 | disposition home or self-care (01) ==
LOC: ED 19:23
DX: L03.116 Cellulitis of left lower limb (principal); E78.5 Hyperlipidemia, unspecified; I10 Essential (primary) hypertension; Z79.899 Other long term (current) drug therapy; Z28.310 Unvaccinated for COVID-19
CPT/HCPCS: 99281

== ENCOUNTER 2023-01-04 19:27 | Observation (INO) | payer OTHER ==
[2023-01-04] MEDS ORDERED: TORAdol 30 mg Injection IM ONE (20:37)
--- NOTE | 2023-01-04 20:38 | ERPHSYRPT ---
- History of Present Illness Source: patient Exam Limitations: no limitations Patient Subjective Stated Complaint: R elbow pain and redness since thursday Triage Nursing Assessment: pt ambulatory to bed by self, alert and oriented x3, pt c/o R elbow pain, redness, and inflammation since thursday, pt denies fever and home and is afebrile in triage, rates pain 10/10 but has not taken any pain reliever today Physician History: 52 yo wm w cc of R olecranon erythema, edema, and pain x 2 days. Pt has h/o ORIF of R olecranon in 1991 but has not had any problems since the surgery. He denies DM/Trauma/Fever/nausea/Vomiting. Timing/Duration: day(s) (2 days) Quality: painful Severity: severe Location: other (R posterior olecranon) Possible Causes: no cause identified Associated Symptoms: denies symptoms Allergies/Adverse Reactions: No Known Drug Allergies Allergy (Verified 01/04/23 19:49) Hx Tetanus, Diphtheria Vaccination/Date Given: Yes Hx Influenza Vaccination/Date Given: No Hx Pneumococcal Vaccination/Date Given: No Immunizations Up to Date: Yes Travel Risk - International Travel Have you traveled outside of the country in past 3 weeks: No - Coronavirus Screening Are you exhibiting any of the following symptoms?: No Close contact with a COVID-19 positive Pt in past 14-21 Days: No - Vaccine Status Have you recieved a Covid-19 vaccination: No - Review of Systems Constitutional: No Symptoms Eyes: No Symptoms Ears, Nose, & Throat: No Symptoms Respiratory: No Symptoms Cardiac: No Symptoms Abdominal/Gastrointestinal: No Symptoms Genitourinary Symptoms: No Symptoms Musculoskeletal: No Symptoms, Arthralgias Skin: Cellulitis Psychological: No Symptoms Endocrine: No Symptoms Hematologic/Lymphatic: No Symptoms Immunological/Allergic: No Symptoms - Past Medical History Pertinent Past Medical History: Yes Neurological History: No Pertinent History ENT History: No Pertinent History Cardiac History: No Pertinent History Respiratory History: No Pertinent History Endocrine Medical History: No Pertinent History Musculoskeletal History: No Pertinent History GI Medical History: Hernia History: No Pertinent History Psycho-Social History: No Pertinent History Male Reproductive Disorders: No Pertinent History Other Medical History: GOUT - Past Surgical History Past Surgical History: Yes Neuro Surgical History: No Pertinent History Cardiac: No Pertinent History Respiratory: No Pertinent History Gastrointestinal: Hernia Repair Genitourinary: No Pertinent History Musculoskeletal: Orthopedic Surgery Male Surgical History: No Pertinent History Other Surgical History: Right elbow 1991. Left elbow 2017 - Social History Smoking Status: Never smoker Exposure to second hand smoke: No Drug Use: none Patient Lives Alone: No - Nursing Vital Signs Nursing Vital Signs: Initial Vital Signs Temperature 97.2 F 01/04/23 19:49 Pulse Rate 105 H 01/04/23 19:49 Respiratory Rate 18 01/04/23 19:49 Blood Pressure 151/116 01/04/23 19:49 O2 Sat by Pulse Oximetry 97 01/04/23 19:49 Pain Scale Pain Intensity 6 Tachy/Hypertensive - Physical Exam General Appearance: no apparent distress Eye Exam: PERRL/EOMI, eyes nml inspection Ears, Nose, Throat Exam: normal ENT inspection, TMs normal, pharynx normal, moist mucous membranes Neck Exam: normal inspection, non-tender, supple, full range of motion, No meningismus, No mass, No Brudzinski, No Kernig's Respiratory Exam: normal breath sounds, lungs clear, airway intact Cardiovascular Exam: tachycardia, capillary refill <2 sec, No murmur Gastrointestinal/Abdomen Exam: soft, normal bowel sounds, No tenderness Back Exam: normal inspection Extremity Exam: other (R posterior olecranon w erythema/edema/TTP/Healed surgical scar/Good rasdial pulse, distal sensation, and capillary return) Neurologic Exam: alert, oriented x 3, cooperative, 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, normal mood/affect, nml cerebellar function, nml station & gait, sensation nml Lymphatic Exam: No adenopathy SpO2 Interpretation: normal SpO2: 97 O2 Delivery: Room Air - Course Nursing assessment & vital signs reviewed: Yes - Radiology Exams Elbow X-ray Interpretation: Interpreted by me (No fx/dislocation) Ordered Tests: Active Orders 24 hr Category Date Time Status Bedrest with BRP/BSC ROUTINE Activity 01/04/23 22:16 Active Code Status Order ROUTINE Care 01/04/23 22:15 Active IV Care Q6H Care 01/04/23 22:[address] in Observation ROUTINE Care 01/04/23 22:15 Active Vital Signs Q4H Care 01/04/23 22:15 Active Heart-Healthy Diet Diet 01/05/23 Breakfast Active ELBOW (MINIMUM 3 VIEWS) Stat Exams 01/04/23 21:19 Taken BLOOD CULTURE Stat Lab 01/04/23 Ordered CBC W DIFF AM.LAB Lab 01/05/23 04:00 Ordered CBC W DIFF Stat Lab 01/04/23 20:37 Completed CMP AM.LAB Lab 01/05/23 04:00 Ordered CMP Stat Lab 01/04/23 20:37 Completed Lactic Acid Stat Lab 01/04/23 20:55 Completed Transfer Order Routine Transfer 01/04/23 Ordered Medication Summary Generic Name Dose Route Start Last Admin Trade Name Nathan PRN Reason Stop Dose Admin Hydromorphone HCl 0.5 mg 01/04/23 22:15 Hydromorphone 1 Mg/1ml Inj 1 Mg/Ml Syringe IV 01/09/23 22:14 Q4H PRN PRN PAIN Vancomycin HCl 1 gm in 200 mls @ 125 mls/hr 01/04/23 22:13 Vancomycin 1 Gram/200 Ml Bag IV 01/04/23 23:48 STAT ONE Sodium Chloride 1,000 mls @ 100 mls/hr 01/04/23 22:15 Sodium Chloride 0.9% 1000 Ml IV 02/03/23 22:14 .Q10H HYACINTH Vancomycin HCl 1 gm in 200 mls @ 125 mls/hr 01/04/23 22:30 Vancomycin 1 Gram/200 Ml Bag IV 02/03/23 22:29 Q12H HYACINTH Ondansetron HCl 4 mg 01/04/23 22:15 Ondansetron Hcl 4 Mg/2 Ml Vial IV 02/03/23 22:14 Q6H PRN PRN NAUSEA/VOMITING Pantoprazole Sodium 40 mg 01/05/23 10:00 Pantoprazole 40 Mg Vial IV 02/04/23 09:59 Q24H10 HYACINTH Discontinued Medications Generic Name Dose Route Start Last Admin Trade Name Nathan PRN Reason Stop Dose Admin Ketorolac Tromethamine 30 mg 01/04/23 20:37 01/04/23 20:52 Ketorolac Tromethamine 30 Mg/Ml Inj IM 01/04/23 20:38 30 mg STAT ONE Administration Ketorolac Tromethamine Confirm 01/04/23 20:50 Ketorolac Tromethamine 30 Mg/Ml Inj Administered 01/04/23 20:51 Dose 30 mg .ROUTE .STK-MED ONE Lab/Rad Data: Laboratory Result Diagrams 01/04/23 20:37 01/04/23 20:37 Laboratory Results 01/04/23 01/04/23 01/04/23 Range/Units 20:55 20:37 20:37 WBC 8.6 (4.0-10.5) x10^3/uL RBC 4.84 (4.1-5.6) x10^6/uL Hgb 14.1 (12.5-18.0) g/dL Hct 42.0 (42-50) % MCV 86.8 (78-100) fL MCH 29.1 (26-32) pg MCHC 33.6 (32-36) g/dL RDW 13.5 (11.5-14.0) % Plt Count 262 (150-450) x10^3/uL MPV 9.2 (7.5-11.0) fL Gran % 61.5 (36.0-66.0) % Immature Gran % (Auto) 0.5 H (0.00-0.4) % Nucleat RBC Rel Count 0.0 (0.00-0.1) % Eos # (Auto) 0.11 (0-0.5) x10^3/uL Immature Gran # (Auto) 0.04 H (0.00-0.03) x10^3u/L Absolute Lymphs (auto) 2.48 (1.0-4.6) x10^3/uL Absolute Monos (auto) 0.63 (0.0-1.3) x10^3/uL Absolute Nucleated RBC 0.00 (0.00-0.01) x10^3u/L Lymphocytes % 28.8 (24.0-44.0) % Monocytes % 7.3 (0.0-12.0) % Eosinophils % 1.3 (0.00-5.0) % Basophils % 0.6 (0.0-0.4) % Absolute Granulocytes 5.30 (1.4-6.9) x10^3/uL Basophils # 0.05 (0-0.4) x10^3/uL Sodium 141 (137-145) mmol/L Potassium 4.1 (3.5-5.1) mmol/L Chloride 103 (98-107) mmol/L Carbon Dioxide 29 (22-30) mmol/L Anion Gap 13.0 (5-15) MEQ/L BUN 15 (9-20) mg/dL Creatinine 1.21 (0.66-1.25) mg/dL Estimated GFR > 60.0 ML/MIN Glucose 128 H (74-106) mg/dL Lactic Acid 1.3 (0.4-2.0) Calcium 9.4 (8.4-10.2) mg/dL Total Bilirubin 0.70 (0.2-1.3) mg/dL AST 25 (17-59) U/L ALT 33 (0-50) U/L Alkaline Phosphatase 78 (38-126) U/L Serum Total Protein 7.8 (6.3-8.2) g/dL Albumin 4.3 (3.5-5.0) g/dL - Progress Progress Note: 01/04/23 22:19 Nursing note and vital signs reviewed No food or housing insecurities noted Blood cultures x2 1gm IV Vancomycin Obs per Dr. Ledbetter Lab results reviewed and shared w pt XR read per ER physician and results shared w pt Full code per pt Pt admitted due to impressive physical exam and tachycardia 01/04/23 22:22 Discussed with : Schuyler Will see patient in: hospital (observation) Counseled pt/family regarding: lab results, diagnosis, rad results - Departure Departure Disposition: Observation Clinical Impression: Cellulitis Condition: Stable Critical Care Time: No Referrals: FAUSTO GUTIERRES MD [Primary Care Provider] - Follow up/PCP as directed
[2023-01-04 20:40] LABS: BASOPHIL % 0.6 % (0.0-0.4); Basophil (Absolute #) 0.05 x10^3/uL (0-0.4); Eosinophil % 1.3 % (0.00-5.0); Eosinophil (Absolute #) 0.11 x10^3/uL (0-0.5); Hemoglobin 14.1 g/dL (12.5-18.0); IMMATURE GRAN # 0.04 x10^3u/L (0.00-0.03); IMMATURE GRAN % 0.5 % (0.00-0.4); Lymphocyte (Absolute #) 2.48 x10^3/uL (1.0-4.6); Lymphocytes % 28.8 % (24.0-44.0); Mean Cell Volume 86.8 fL (78-100); Mean Corpuscular Hemoglobin 29.1 pg (26-32); Mean Corpuscular Hgb Concent. 33.6 g/dL (32-36); Mean Platelet Volume 9.2 fL (7.5-11.0); Monocyte (Absolute #) 0.63 x10^3/uL (0.0-1.3); Monocytes % 7.3 % (0.0-12.0); Neutrophil % 61.5 % (36.0-66.0); Platelet Count 262 x10^3/uL (150-450); Red Blood Count 4.84 x10^6/uL (4.1-5.6); Red Cell Distribution Width 13.5 % (11.5-14.0); White Blood Count 8.6 x10^3/uL (4.0-10.5)
[2023-01-04] MEDS ORDERED: TORAdol 30 mg Injection ONE (20:50)
[2023-01-04 20:53] LABS: ALBUMIN 4.3 g/dL (3.5-5.0); ALKALINE PHOSPHATASE 78 U/L (38-126); BLOOD UREA NITROGEN 15 mg/dL (9-20); CHLORIDE 103 mmol/L (98-107); Calcium 9.4 mg/dL (8.4-10.2); Carbon Dioxide 29 mmol/L (22-30); Creatinine 1 1.21 mg/dL (0.66-1.25); EST GLOMERULAR FILTRATION RATE > 60.0 ML/MIN; Glucose 128 mg/dL (74-106); Potassium 4.1 mmol/L (3.5-5.1); SGOT/AST 25 U/L (17-59); SGPT/ALT 33 U/L (0-50); SODIUM 141 mmol/L (137-145); Total Protein 7.8 g/dL (6.3-8.2)
[2023-01-04] MEDS ORDERED: VANCOMYCIN 1 GRAM/200 ML BAG 1 GM/200 ML PIGGYBACK IV ONE ×2 (22:13→22:29)
[2023-01-04] MEDS ORDERED: Zofran 4 MG/2 ML VIAL IV PRN (22:15)
[2023-01-04] MEDS ORDERED: Hydromorphone 1 mg/ml Injection IV PRN (22:15)
[2023-01-04] MEDS ORDERED: VANCOMYCIN 1 GRAM/200 ML BAG 1 GM/200 ML PIGGYBACK IV SCH (22:30)
[2023-01-04 23:02] LABS: INFLUENZA A NEGATIVE (NEGATIVE); INFLUENZA B NEGATIVE (NEGATIVE); RESPIRATORY SYNCTIAL VIRUS NEGATIVE (Negative); SARS-CoV-2 Xpert Express NEGATIVE (NEGATIVE)
[2023-01-04] MEDS: Sodium Chloride 0.9% 1000 ML 1,000 ML IV SCH (23:19)
[2023-01-05 04:59] LABS: Absolute Neutrophil Ct (ANC) 3.38 x10^3/uL (1.4-6.9); BASOPHIL % 0.7 % (0.0-0.4); Basophil (Absolute #) 0.05 x10^3/uL (0-0.4); Eosinophil % 1.6 % (0.00-5.0); Eosinophil (Absolute #) 0.11 x10^3/uL (0-0.5); Hematocrit 38.4 % (42-50); Hemoglobin 12.7 g/dL (12.5-18.0); IMMATURE GRAN # 0.05 x10^3u/L (0.00-0.03); IMMATURE GRAN % 0.7 % (0.00-0.4); Lymphocyte (Absolute #) 2.88 x10^3/uL (1.0-4.6); Lymphocytes % 40.7 % (24.0-44.0); Mean Cell Volume 86.9 fL (78-100); Mean Corpuscular Hemoglobin 28.7 pg (26-32); Mean Corpuscular Hgb Concent. 33.1 g/dL (32-36); Mean Platelet Volume 9.3 fL (7.5-11.0); Monocytes % 8.5 % (0.0-12.0); Neutrophil % 47.8 % (36.0-66.0); Platelet Count 226 x10^3/uL (150-450); Red Blood Count 4.42 x10^6/uL (4.1-5.6); Red Cell Distribution Width 13.8 % (11.5-14.0); White Blood Count 7.1 x10^3/uL (4.0-10.5)
[2023-01-05 06:12] LABS: ALBUMIN 3.7 g/dL (3.5-5.0); ALKALINE PHOSPHATASE 67 U/L (38-126); BLOOD UREA NITROGEN 19 mg/dL (9-20); CHLORIDE 108 mmol/L (98-107); Calcium 8.8 mg/dL (8.4-10.2); Carbon Dioxide 24 mmol/L (22-30); Creatinine 1 0.96 mg/dL (0.66-1.25); EST GLOMERULAR FILTRATION RATE > 60.0 ML/MIN; Glucose 113 mg/dL (74-106); Potassium 3.9 mmol/L (3.5-5.1); SGOT/AST 22 U/L (17-59); SGPT/ALT 27 U/L (0-50); SODIUM 139 mmol/L (137-145); Total Protein 6.6 g/dL (6.3-8.2)
[2023-01-05] MEDS: VANCOMYCIN 1.25 GM/250 ML BAG 1.25 GM/250 ML PIGGYBACK IV SCH ×2 (08:32→21:00)
[2023-01-05] MEDS: PROTONIX 40 MG IV IV SCH (08:32)
[2023-01-05] MEDS: Sodium Chloride 0.9% 1000 ML 1,000 ML IV SCH ×2 (08:34→21:00)
--- NOTE | 2023-01-05 08:45 | XRAY ---
Indication: Erythema, swelling, and pain 3 days. No known injury. Comparison: None 3 view right elbow demonstrates old proximal ulnar fracture with intact orthopedic wires. No other bony, articular, or soft tissue abnormalities.
--- NOTE | 2023-01-05 21:09 | PCM.HP ---
History of Present Illness - Chief Complaint Chief Complaint: right elbow swelling for 3-4 days History of Present Illness: is a 52 year old male.w cc of R olecranon erythema, edema, and pain x 2 days. Pt has h/o ORIF of R olecranon in 1991 but has not had any problems since the surgery. He denies DM/Trauma/Fever/nausea/Vomiting. Timing/Duration: day(s) (2 days) Quality: painful Severity: severe Location: other (R posterior olecranon) Possible Causes: no cause identified Associated Symptoms: denies symptoms - Review of Systems Constitutional: No Fever, No Chills Eyes: No Symptoms Ears, Nose, & Throat: No Symptoms Respiratory: No Cough, No Short Of Breath Cardiac: No Chest Pain, No Edema, No Syncope Abdominal/Gastrointestinal: No Abdominal Pain, No Nausea, No Vomiting, No Diarrhea Genitourinary Symptoms: No Dysuria Musculoskeletal: Joint Redness (right elbow), Joint Swelling, No Back Pain, No Neck Pain Skin: No Rash Neurological: No Dizziness, No Focal Weakness, No Sensory Changes Psychological: No Symptoms Endocrine: No Symptoms Hematologic/Lymphatic: No Symptoms Immunological/Allergic: No Symptoms Medications & Allergies Home Medications: Home Medication List Indomethacin 25 mg [Indocin 25 MG] 25 mg PO TID 01/05/23 [History Confirmed 01/05/23] Allergies/Adverse Reactions: Allergies Allergy/AdvReac Type Severity Reaction Status Date / Time No Known Drug Allergies Allergy Verified 01/04/23 19:49 - Past Medical History Past Medical History: Yes Neurological History: No Pertinent History ENT History: No Pertinent History Cardiac History: No Pertinent History Respiratory History: No Pertinent History Endocrine Medical History: No Pertinent History Musculoskelatal History: No Pertinent History GI Medical History: Hernia History: No Pertinent History Pyscho-Social History: No Pertinent History Male Reproductive Disorders: No Pertinent History Comment: GOUT - Past Surgical History Past Surgical History: Yes Neuro Surgical History: No Pertinent History Cardiac History: No Pertinent History Respiratory Surgery: No Pertinent History GI Surgical History: Hernia Repair Genitourinary Surgical Hx: No Pertinent History Musculskeletal Surgical Hx: Orthopedic Surgery Male Surgical History: No Pertinent History Other Surgical History: Right elbow 1991. Left elbow 2017 - Social History Smoking Status: Never smoker Exposure to second hand smoke: No Alcohol: None Drug Use: none - Physical Exam Vital Signs: Vital Signs - 24 hr Temp Pulse Resp BP BP Pulse Ox 01/05/23 19:32 97.5 F 90 18 139/88 96 01/05/23 16:00 97.3 F 86 16 126/85 94 L 01/05/23 10:56 97.3 F 85 16 124/73 96 01/05/23 07:57 97.7 F 67 16 130/79 94 L 01/05/23 04:00 98.1 F 71 17 122/77 94 L 01/04/23 23:57 98.1 F 90 20 132/85 94 L 01/04/23 23:15 88 20 93 L 01/04/23 22:25 97 01/04/23 22:15 98 H 20 118/86 98 01/04/23 21:29 101 H 144/80 96 General Appearance: no apparent distress, alert Neurologic Exam: alert, oriented x 3, cooperative, normal mood/affect, nml cerebellar function, nml station & gait, sensation nml, No motor deficits Eye Exam: PERRL/EOMI, eyes nml inspection Ears, Nose, Throat Exam: normal ENT inspection, TMs normal, pharynx normal, moist mucous membranes Neck Exam: normal inspection, non-tender, supple, full range of motion Respiratory Exam: normal breath sounds, lungs clear, No respiratory distress Cardiovascular Exam: regular rate/rhythm, normal heart sounds, normal peripheral pulses Gastrointestinal/Abdomen Exam: soft, normal bowel sounds, No tenderness, No mass Back Exam: normal inspection, normal range of motion, No CVA tenderness, No vertebral tenderness Extremity Exam: normal inspection, normal range of motion, pelvis stable, inflammation, swelling (right elbow) Skin Exam: normal color, warm, dry, No rash Wound Assessment: Skin/Wound Assessment Wound/Incision Assessment Start: 01/04/23 23:00 Text: Status: Active Freq: Q6H Protocol: Document 01/05/23 20:00 RAYMON (Rec: 01/05/23 20:28 RAYMON [id number]) Wound/Incision Assessment Right Elbow Wound Assessment Shift Assessment Wound Type CELLULITIS Wound Stage Non Pressure Wound Drainage Amount None Surrounding Tissue [place] Comment WARM TO THE TOUCH Lymphatic Exam: No adenopathy Results - Labs Lab/Micro Results: Lab Results-Last 24 Hours 01/04/23 01/04/23 01/05/23 Range/Units 20:55 22:20 04:27 WBC 7.1 (4.0-10.5) x10^3/uL RBC 4.42 (4.1-5.6) x10^6/uL Hgb 12.7 (12.5-18.0) g/dL Hct 38.4 L (42-50) % MCV 86.9 (78-100) fL MCH 28.7 (26-32) pg MCHC 33.1 (32-36) g/dL RDW 13.8 (11.5-14.0) % Plt Count 226 (150-450) x10^3/uL MPV 9.3 (7.5-11.0) fL Gran % 47.8 (36.0-66.0) % Immature Gran % (Auto) 0.7 H (0.00-0.4) % Nucleat RBC Rel Count 0.0 (0.00-0.1) % Eos # (Auto) 0.11 (0-0.5) x10^3/uL Immature Gran # (Auto) 0.05 H (0.00-0.03) x10^3u/L Absolute Lymphs (auto) 2.88 (1.0-4.6) x10^3/uL Absolute Monos (auto) 0.60 (0.0-1.3) x10^3/uL Absolute Nucleated RBC 0.00 (0.00-0.01) x10^3u/L Lymphocytes % 40.7 (24.0-44.0) % Monocytes % 8.5 (0.0-12.0) % Eosinophils % 1.6 (0.00-5.0) % Basophils % 0.7 (0.0-0.4) % Absolute Granulocytes 3.38 (1.4-6.9) x10^3/uL Basophils # 0.05 (0-0.4) x10^3/uL Sodium (137-145) mmol/L Potassium (3.5-5.1) mmol/L Chloride (98-107) mmol/L Carbon Dioxide (22-30) mmol/L Anion Gap (5-15) MEQ/L BUN (9-20) mg/dL Creatinine (0.66-1.25) mg/dL Estimated GFR ML/MIN Glucose (74-106) mg/dL Lactic Acid 1.3 (0.4-2.0) Calcium (8.4-10.2) mg/dL Total Bilirubin (0.2-1.3) mg/dL AST (17-59) U/L ALT (0-50) U/L Alkaline Phosphatase (38-126) U/L Serum Total Protein (6.3-8.2) g/dL Albumin (3.5-5.0) g/dL Influenza Type A Ag NEGATIVE (NEGATIVE) Influenza Type B Ag NEGATIVE (NEGATIVE) RSV (PCR) NEGATIVE (Negative) SARS-CoV-2 (PCR) NEGATIVE (NEGATIVE) 01/05/23 Range/Units 04:27 WBC (4.0-10.5) x10^3/uL RBC (4.1-5.6) x10^6/uL Hgb (12.5-18.0) g/dL Hct (42-50) % MCV (78-100) fL MCH (26-32) pg MCHC (32-36) g/dL RDW (11.5-14.0) % Plt Count (150-450) x10^3/uL MPV (7.5-11.0) fL Gran % (36.0-66.0) % Immature Gran % (Auto) (0.00-0.4) % Nucleat RBC Rel Count (0.00-0.1) % Eos # (Auto) (0-0.5) x10^3/uL Immature Gran # (Auto) (0.00-0.03) x10^3u/L Absolute Lymphs (auto) (1.0-4.6) x10^3/uL Absolute Monos (auto) (0.0-1.3) x10^3/uL Absolute Nucleated RBC (0.00-0.01) x10^3u/L Lymphocytes % (24.0-44.0) % Monocytes % (0.0-12.0) % Eosinophils % (0.00-5.0) % Basophils % (0.0-0.4) % Absolute Granulocytes (1.4-6.9) x10^3/uL Basophils # (0-0.4) x10^3/uL Sodium 139 (137-145) mmol/L Potassium 3.9 (3.5-5.1) mmol/L Chloride 108 H (98-107) mmol/L Carbon Dioxide 24 (22-30) mmol/L Anion Gap 11.0 (5-15) MEQ/L BUN 19 (9-20) mg/dL Creatinine 0.96 (0.66-1.25) mg/dL Estimated GFR > 60.0 ML/MIN Glucose 113 H (74-106) mg/dL Lactic Acid (0.4-2.0) Calcium 8.8 (8.4-10.2) mg/dL Total Bilirubin 0.70 (0.2-1.3) mg/dL AST 22 (17-59) U/L ALT 27 (0-50) U/L Alkaline Phosphatase 67 (38-126) U/L Serum Total Protein 6.6 (6.3-8.2) g/dL Albumin 3.7 (3.5-5.0) g/dL Influenza Type A Ag (NEGATIVE) Influenza Type B Ag (NEGATIVE) RSV (PCR) (Negative) SARS-CoV-2 (PCR) (NEGATIVE) - Radiology Impressions Radiology Exams & Impressions: Radiology Procedures Category Date Time Status ELBOW (MINIMUM 3 VIEWS) Stat Exams 01/04/23 21:19 Completed Assessment/Plan (1) Cellulitis Current Visit: Yes Status: Acute Qualifiers: Site of cellulitis: extremity Site of cellulitis of extremity: upper extremity Laterality: left Qualified Code(s): L03.114 - Cellulitis of left upper limb Assessment & Plan: Chief Complaint Diagnosis cellulitis Allergies Allergy/AdvReac Type Severity Reaction Status Date / Time No Known Drug Allergies Allergy Verified 01/04/23 19:49 Vital Signs (Last 24 hours) Temp Pulse Resp BP BP Pulse Ox 01/05/23 19:32 97.5 F 90 18 139/88 96 01/05/23 16:00 97.3 F 86 16 126/85 94 L 01/05/23 10:56 97.3 F 85 16 124/73 96 01/05/23 07:57 97.7 F 67 16 130/79 94 L 01/05/23 04:00 98.1 F 71 17 122/77 94 L 01/04/23 23:57 98.1 F 90 20 132/85 94 L 01/04/23 23:15 88 20 93 L 02/19/23 22:25 97 01/04/23 22:15 98 H 20 118/86 98 01/04/23 21:29 101 H 144/80 96 Home Medications Medication Instructions Recorded Confirmed Last Taken Type Indomethacin 25 mg [Indocin 25 25 mg PO TID 01/05/23 01/05/23 Unknown History MG] Current Medications Generic Name Dose Route Start Last Admin Trade Name Freeva PRN Reason Stop Dose Admin Device 1 01/06/23 21:30 Therapuetic Drug Level Monitor Each IJ 01/06/23 21:31 1XONLY ONE Hydromorphone HCl 0.5 mg 01/04/23 22:15 Hydromorphone 1 Mg/1ml Inj 1 Mg/Ml Syringe IV 01/09/23 22:14 Q4H PRN PRN PAIN Sodium Chloride 1,000 mls @ 100 mls/hr 01/04/23 22:15 01/05/23 21:00 Sodium Chloride 0.9% 1000 Ml IV 02/03/23 22:14 100 mls/hr .Q10H HYACINTH Administration Vancomycin HCl 1.25 gm in 250 mls @ 166.667 mls/hr 01/05/23 10:00 01/05/23 21:00 Vancomycin 1.25 Gm/250 Ml Bag IV 01/08/23 09:59 166.667 mls/hr Q12HT HYACINTH Administration Ondansetron HCl 4 mg 01/04/23 22:15 Ondansetron Hcl 4 Mg/2 Ml Vial IV 02/03/23 22:14 Q6H PRN PRN NAUSEA/VOMITING Pantoprazole Sodium 40 mg 01/05/23 10:00 01/05/23 08:32 Pantoprazole 40 Mg Vial IV 02/04/23 09:59 40 mg Q24H10 HYACINTH Administration Discontinued Medications Generic Name Dose Route Start Last Admin Trade Name Freq PRN Reason Stop Dose Admin Vancomycin HCl 1 gm in 200 mls @ 125 mls/hr 01/04/23 22:13 01/04/23 22:33 Vancomycin 1 Gram/200 Ml Bag IV 01/04/23 23:48 125 ml/hr STAT ONE 125 mls/hr Administration Vancomycin HCl 1 gm in 200 mls @ 125 mls/hr 01/04/23 22:30 01/04/23 23:40 Vancomycin 1 Gram/200 Ml Bag IV 02/03/23 22:29 Not Given Q12H [facility] Vancomycin HCl Confirm 01/04/23 22:29 Vancomycin 1 Gram/200 Ml Bag Administered 01/04/23 22:30 Dose 1 gm in 200 mls @ ud IV .STK-MED ONE Ketorolac Tromethamine 30 mg 01/04/23 20:37 01/04/23 20:52 Ketorolac Tromethamine 30 Mg/Ml Inj IM 01/04/23 20:38 30 mg STAT ONE Administration Ketorolac Tromethamine Confirm 01/04/23 20:50 Ketorolac Tromethamine 30 Mg/Ml Inj Administered 01/04/23 20:51 Dose 30 mg .ROUTE .STK-MED ONE Intake & Output (Last 24 hours) 01/03/23 01/04/23 01/05/23 01/06/23 11:59 11:59 11:59 11:59 Intake Total 853 480 Output Total 1 Balance 852 480 Weight 122.4 kg Microbiology Results (Last 24 hours) 01/04/23 22:21 Blood Blood Culture Gram Stain - Pending 01/04/23 22:21 Blood Blood Culture - Pending 01/04/23 Unknown Blood Blood Culture Gram Stain - Pending 01/04/23 Unknown Blood Blood Culture - Pending Laboratory Results (Last 24 hours) 01/05/23 01/05/23 01/04/23 04:27 04:27 22:20 WBC 7.1 RBC 4.42 Hgb 12.7 Hct 38.4 L MCV 86.9 MCH 28.7 MCHC 33.1 RDW 13.8 Plt Count 226 MPV 9.3 Gran % 47.8 Immature Gran % (Auto) 0.7 H Nucleat RBC Rel Count 0.0 Eos # (Auto) 0.11 Immature Gran # (Auto) 0.05 H Absolute Lymphs (auto) 2.88 Absolute Monos (auto) 0.60 Absolute Nucleated RBC 0.00 Lymphocytes % 40.7 Monocytes % 8.5 Eosinophils % 1.6 Basophils % 0.7 Absolute Granulocytes 3.38 Basophils # 0.05 Sodium 139 Potassium 3.9 Chloride 108 H Carbon Dioxide 24 Anion Gap 11.0 BUN 19 Creatinine 0.96 Estimated GFR > 60.0 Glucose 113 H Lactic Acid Calcium 8.8 Total Bilirubin 0.70 AST 22 ALT 27 Alkaline Phosphatase 67 Serum Total Protein 6.6 Albumin 3.7 Influenza Type A Ag NEGATIVE Influenza Type B Ag NEGATIVE RSV (PCR) NEGATIVE SARS-CoV-2 (PCR) NEGATIVE 01/04/23 20:55 WBC RBC Hgb Hct MCV MCH MCHC RDW Plt Count MPV Gran % Immature Gran % (Auto) Nucleat RBC Rel Count Eos # (Auto) Immature Gran # (Auto) Absolute Lymphs (auto) Absolute Monos (auto) Absolute Nucleated RBC Lymphocytes % Monocytes % Eosinophils % Basophils % Absolute Granulocytes Basophils # Sodium Potassium Chloride Carbon Dioxide Anion Gap BUN Creatinine Estimated GFR Glucose Lactic Acid 1.3 Calcium Total Bilirubin AST ALT Alkaline Phosphatase Serum Total Protein Albumin Influenza Type A Ag Influenza Type B Ag RSV (PCR) SARS-CoV-2 (PCR) Orders (Last 24 hours) Category Date Time Status Bedrest with BRP/BSC ROUTINE Activity 01/04/23 22:16 Active Code Status Order ROUTINE Care 01/04/23 22:15 Active IV Care Q6H Care 01/04/23 22:[address] in Observation ROUTINE Care 01/04/23 22:15 Active Vital Signs Q4H Care 01/04/23 22:15 Completed Heart-Healthy Diet Diet 01/05/23 Breakfast Active ELBOW (MINIMUM 3 VIEWS) Stat Exams 01/04/23 21:19 Completed BLOOD CULTURE Stat Lab 01/04/23 22:21 Ordered CBC W DIFF AM.LAB Lab 01/05/23 04:27 Completed CBC W DIFF Stat Lab 01/04/23 20:37 Completed CMP AM.LAB Lab 01/05/23 04:27 Completed CMP Stat Lab 01/04/23 20:37 Completed COVID/FLU/RSV Panel Stat Lab 01/04/23 22:20 Completed CRP (C-Reative Protein) Quant Stat Lab 01/04/23 20:37 Received Lactic Acid Stat Lab 01/04/23 20:55 Completed Vancomycin, Trough Urgent Lab 01/06/23 21:30 Ordered Hydromorphone 1 mg/1Ml Inj [Hydromorphone 1 mg/ml Med 01/04/23 22:15 Active Injection] 0.5 mg IV Q4H PRN PRN KETOROLAC trometh 30 mg Inj [TORAdol 30 mg Injection Med 01/04/23 20:50 Discontinued ] 30 mg .ROUTE .STK-MED ONE KETOROLAC trometh 30 mg Inj [TORAdol 30 mg Injection Med 01/04/23 20:37 Discontinued ] 30 mg IM STAT ONE NaCl 0.9% 1000 ml [Sodium Chloride 0.9% 1000 ML] 1,000 Med 01/04/23 22:15 Active ml IV 100 mls/hr Ondansetron HCl 4 mg/2 ml [Zofran 4 MG/2 ML VIAL] Med 01/04/23 22:15 Active 4 mg IV Q6H PRN PRN Pantoprazole 40 mg [Protonix 40 mg IV] Med 01/05/23 10:00 Active 40 mg IV Q24H10 Therapuetic Drug Level Monitor [Trough Drug Levels] Med 01/06/23 21:30 Once 1 IJ 1XONLY ONE Vancomycin/Water For Inj (Peg) [Vancomycin 1 Gram/200 Med 01/04/23 22:30 Discontinued ml Bag] 1 gm in 200 ml IV Q12H Vancomycin/Water For Inj (Peg) [Vancomycin 1 Gram/200 Med 01/04/23 22:13 Discontinued ml Bag] 1 gm in 200 ml IV STAT Vancomycin/Water For Inj (Peg) [Vancomycin 1 Gram/200 Med 01/04/23 22:29 Discontinued ml Bag] 1 gm in 200 ml IV UD Vancomycin/Water For Inj (Peg) [Vancomycin 1.25 gm/250 Med 01/05/23 10:00 Active ml Bag] 1.25 gm in 250 ml IV Q12HT OT Screen per Nursing Assess ONCE OT 01/05/23 00:33 Completed PT Screen per Nursing Assess ONCE PT 01/05/23 00:33 Completed Patient Care Notes (Last 24 hours) 01/05/23 13:42 Physical Therapy Note by Bruno(Pedro#[id number])Breonna P.T. ORDER CANCELLED SKILLED INTERVENTION NOT WARRANTED AT THIS TIME. NO WOUND PRESENT. PT. TO D/C HOME TOMORROW W/ ORAL ATB. Initialized on 01/05/23 13:42 - END OF NOTE 01/05/23 12:17 Nursing Note by Carlotta Mendez Rounded with Dr. Wood. Stated patient needs to stay another day. Order for Physical Therapy to evalulate and treat right elbow cellulitis. Initialized on 01/05/23 12:17 - END OF NOTE Code(s): L03.90 - CELLULITIS, UNSPECIFIED
[2023-01-06] MEDS: Sodium Chloride 0.9% 1000 ML 1,000 ML IV SCH (09:00)
[2023-01-06] MEDS: VANCOMYCIN 1.25 GM/250 ML BAG 1.25 GM/250 ML PIGGYBACK IV SCH (09:00)
[2023-01-06] MEDS: PROTONIX 40 MG IV IV SCH (09:00)
[2023-01-06 11:51] VITALS: BP 141/96; PULSE 82; O2SAT 96
--- NOTE | 2023-01-06 20:26 | PCM.DS ---
Discharge Summary Date of Admission: 01/04/23 23:14 Admitting Physician: FAUSTO GUTIERRES Primary Care Provider: FAUSTO GUTIERRES Allergies Allergies No Known Drug Allergies Allergy (Verified 01/04/23 19:49) Hospital Summary - Hospital Course Hospital Course: Chief Complaint Diagnosis right elbow swelling for 3-4 days Allergies Allergy/AdvReac Type Severity Reaction Status Date / Time No Known Drug Allergies Allergy Verified 01/04/23 19:49 Vital Signs (Last 24 hours) Temp Pulse Resp BP Pulse Ox 01/06/23 11:50 97.8 F 82 17 141/96 96 01/06/23 07:08 97.5 F 68 18 123/83 94 L 01/06/23 04:00 97.8 F 86 17 115/83 94 L 01/05/23 23:03 98.0 F 86 18 128/92 94 L Home Medications Medication Instructions Recorded Confirmed Last Taken Type Indomethacin 25 mg [Indocin 25 25 mg PO TID 01/05/23 01/05/23 Unknown History MG] Levofloxacin [Levofloxacin 500 500 mg PO DAILY 7 Days #7 tablet 01/06/23 Unknown Rx MG Tablet] Current Medications Discontinued Medications Generic Name Dose Route Start Last Admin Trade Name Freq PRN Reason Stop Dose Admin Device 1 01/06/23 21:30 Therapuetic Drug Level Monitor Each IJ 01/06/23 21:31 1XONLY ONE Hydromorphone HCl 0.5 mg 01/04/23 22:15 Hydromorphone 1 Mg/1ml Inj 1 Mg/Ml Syringe IV 01/09/23 22:14 Q4H PRN PRN PAIN Vancomycin HCl 1 gm in 200 mls @ 125 mls/hr 01/04/23 22:13 01/04/23 22:33 Vancomycin 1 Gram/200 Ml Bag IV 01/04/23 23:48 125 ml/hr STAT ONE 125 mls/hr Administration Sodium Chloride 1,000 mls @ 100 mls/hr 01/04/23 22:15 01/06/23 09:00 Sodium Chloride 0.9% 1000 Ml IV 02/03/23 22:14 100 mls/hr .Q10H HYACINTH Administration Vancomycin HCl 1 gm in 200 mls @ 125 mls/hr 01/04/23 22:30 01/04/23 23:40 Vancomycin 1 Gram/200 Ml Bag IV 02/03/23 22:29 Not Given Q12H HYACINTH Vancomycin HCl Confirm 01/04/23 22:29 Vancomycin 1 Gram/200 Ml Bag Administered 01/04/23 22:30 Dose 1 gm in 200 mls @ ud IV .STK-MED ONE Vancomycin HCl 1.25 gm in 250 mls @ 166.667 mls/hr 01/05/23 10:00 01/06/23 09:00 Vancomycin 1.25 Gm/250 Ml Bag IV 01/08/23 09:59 166.667 mls/hr Q12HT HYACINTH Administration Ketorolac Tromethamine 30 mg 01/04/23 20:37 01/04/23 20:52 Ketorolac Tromethamine 30 Mg/Ml Inj IM 01/04/23 20:38 30 mg STAT ONE Administration Ketorolac Tromethamine Confirm 01/04/23 20:50 Ketorolac Tromethamine 30 Mg/Ml Inj Administered 01/04/23 20:51 Dose 30 mg .ROUTE .STK-MED ONE Ondansetron HCl 4 mg 01/04/23 22:15 Ondansetron Hcl 4 Mg/2 Ml Vial IV 02/03/23 22:14 Q6H PRN PRN NAUSEA/VOMITING Pantoprazole Sodium 40 mg 01/05/23 10:00 01/06/23 09:00 Pantoprazole 40 Mg Vial IV 02/04/23 09:59 40 mg Q24H10 HYACINTH Administration Intake & Output (Last 24 hours) 01/04/23 01/05/23 01/06/23 01/07/23 11:59 11:59 11:59 11:59 Intake Total 853 4016 480 Output Total 1 Balance 852 4016 480 Weight 122.4 kg Microbiology Results (Last 24 hours) 01/04/23 22:21 Blood Blood Culture Gram Stain - Pending 01/04/23 22:21 Blood Blood Culture - Preliminary NO GROWTH TO DATE 01/04/23 20:37 Blood Blood Culture Gram Stain - Pending 01/04/23 20:37 Blood Blood Culture - Preliminary NO GROWTH TO DATE Laboratory Results (Last 24 hours) 01/04/23 20:37 C-Reactive Prot, Quant 63 H Orders (Last 24 hours) Category Date Time Status Discharge Routine Discharge 01/06/23 Ordered Discharge/Telephone Order Routine Discharge 01/06/23 Active Therapuetic Drug Level Monitor [Trough Drug Levels] Med 01/06/23 21:30 Discontinued 1 IJ 1XONLY ONE Patient Care Notes (Last 24 hours) 01/06/23 13:13 Nursing Note by Carmen Palomino patient drove self home on discharge - states will take full course of antibiotics and attend follow up after discharge Initialized on 01/06/23 13:13 - END OF NOTE 01/06/23 10:34 Case Management Note by Aleyda Carmona Spoke with pt and no new needs identified at discharge. States still plans to return home with significant other at [facility] and has no needs. Initialized on 01/06/23 10:34 - END OF NOTE - Vitals & Intake/Output Vital Signs: Vital Signs Temperature 97.8 F 01/06/23 11:50 Pulse Rate 82 01/06/23 11:50 Respiratory Rate 17 01/06/23 11:50 Blood Pressure 141/96 01/06/23 11:50 O2 Sat by Pulse Oximetry 96 01/06/23 11:50 Intake & Output: Intake & Output 01/04/23 01/05/23 01/06/23 01/07/23 11:59 11:59 11:59 11:59 Intake Total 853 4016 480 Output Total 1 Balance 852 4016 480 Weight 122.4 kg - Lab Result Diagrams: 01/05/23 04:27 01/05/23 04:27 Lab Results-Last 24 Hrs: Lab Results-Last 24 Hours 01/04/23 Range/Units 20:37 C-Reactive Prot, Quant 63 H (0-10) mg/L Micro Results-Entire Visit: Microbiology 01/04/23 22:21 Blood Culture - Preliminary Blood NO GROWTH TO DATE 01/04/23 20:37 Blood Culture - Preliminary Blood NO GROWTH TO DATE - Radiology Exams Ordered Rad Exams-Entire Visit: Radiology Procedures Category Date Time Status ELBOW (MINIMUM 3 VIEWS) Stat Exams 01/04/23 21:19 Completed - Procedures and Test Procedures and Tests throughout Hospitalization: Therapy Orders & Screens 01/05/23 00:33 OT Screen per Nursing Assess ONCE Comment: Protocol Order Physician Instructions: Greater than 3 points order OT Admission Screening Reason For Exam: Triggered on Admission Diagnosis: cellulitis Open Wound/Cellutlitis/Pressure Ulcers: Yes Acute Fx/ORIF/Change in wt bearing status: No Severe MUSCULOSKELETAL pain: No ADL Dysfunction: No Acute CVA w/Hemiparesis/Hemiplegia: No Decreased Functional Mobility/Strength: No Sprain/Strain: No Acute Post-op Mobility Dysfunction: No Total Points: 5 PT Screen per Nursing Assess ONCE Comment: Protocol Order Physician Instructions: Greater than 3 points order PT Admission Screenin Reason For Exam: Triggered on Admission Diagnosis: cellulitis Open Wound/Cellutlitis/Pressure Ulcers: Yes Acute Fx/ORIF/Change in wt bearing status: No Severe MUSCULOSKELETAL pain: No ADL Dysfunction: No Acute CVA w/Hemiparesis/Hemiplegia: No Decreased Functional Mobility/Strength: No Sprain/Strain: No Acute Post-op Mobility Dysfunction: No Total Points: 5 Discharge Exam General Appearance: no apparent distress, alert Neurologic Exam: alert, oriented x 3, cooperative, normal mood/affect, nml cerebellar function, sensation nml, No motor deficits Eye Exam: PERRL, EOMI, eyes nml inspection Ears, Nose, Throat Exam: normal ENT inspection, pharynx normal, moist mucous membranes Neck Exam: normal inspection, non-tender, supple, full range of motion Respiratory Exam: normal breath sounds, lungs clear, No respiratory distress Cardiovascular Exam: regular rate/rhythm, normal heart sounds Gastrointestinal/Abdomen Exam: soft, No tenderness, No mass Male Genitalia Exam: deferred Rectal Exam: deferred Back Exam: normal inspection, normal range of motion, No CVA tenderness, No vertebral tenderness Extremity Exam: normal inspection, normal range of motion Skin Exam: normal color, warm, dry Final Diagnosis/Problem List - Final Discharge Diagnosis/Problem (1) Cellulitis Status: Resolved Assessment & Plan: Chief Complaint Diagnosis right elbow swelling for 3-4 days Allergies Allergy/AdvReac Type Severity Reaction Status Date / Time No Known Drug Allergies Allergy Verified 01/04/23 19:49 Vital Signs (Last 24 hours) Temp Pulse Resp BP Pulse Ox 01/06/23 11:50 97.8 F 82 17 141/96 96 01/06/23 07:08 97.5 F 68 18 123/83 94 L 01/06/23 04:00 97.8 F 86 17 115/83 94 L 01/05/23 23:03 98.0 F 86 18 128/92 94 L Home Medications Medication Instructions Recorded Confirmed Last Taken Type Indomethacin 25 mg [Indocin 25 25 mg PO TID 01/05/23 01/05/23 Unknown History MG] Levofloxacin [Levofloxacin 500 500 mg PO DAILY 7 Days #7 tablet 01/06/23 Unknown Rx MG Tablet] Current Medications Discontinued Medications Generic Name Dose Route Start Last Admin Trade Name Freq PRN Reason Stop Dose Admin Device 1 01/06/23 21:30 Therapuetic Drug Level Monitor Each IJ 01/06/23 21:31 1XONLY ONE Hydromorphone HCl 0.5 mg 01/04/23 22:15 Hydromorphone 1 Mg/1ml Inj 1 Mg/Ml Syringe IV 01/09/23 22:14 Q4H PRN PRN PAIN Vancomycin HCl 1 gm in 200 mls @ 125 mls/hr 01/04/23 22:13 01/04/23 22:33 Vancomycin 1 Gram/200 Ml Bag IV 01/04/23 23:48 125 ml/hr STAT ONE 125 mls/hr Administration Sodium Chloride 1,000 mls @ 100 mls/hr 01/04/23 22:15 01/06/23 09:00 Sodium Chloride 0.9% 1000 Ml IV 02/03/23 22:14 100 mls/hr .Q10H HYACINTH Administration Vancomycin HCl 1 gm in 200 mls @ 125 mls/hr 01/04/23 22:30 01/04/23 23:40 Vancomycin 1 Gram/200 Ml Bag IV 02/03/23 22:29 Not Given Q12H HYACINTH Vancomycin HCl Confirm 01/04/23 22:29 Vancomycin 1 Gram/200 Ml Bag Administered 01/04/23 22:30 Dose 1 gm in 200 mls @ ud IV .STK-MED ONE Vancomycin HCl 1.25 gm in 250 mls @ 166.667 mls/hr 01/05/23 10:00 01/06/23 09:00 Vancomycin 1.25 Gm/250 Ml Bag IV 01/08/23 09:59 166.667 mls/hr Q12HT HYACINTH Administration Ketorolac Tromethamine 30 mg 01/04/23 20:37 01/04/23 20:52 Ketorolac Tromethamine 30 Mg/Ml Inj IM 01/04/23 20:38 30 mg STAT ONE Administration Ketorolac Tromethamine Confirm 01/04/23 20:50 Ketorolac Tromethamine 30 Mg/Ml Inj Administered 01/04/23 20:51 Dose 30 mg .ROUTE .STK-MED ONE Ondansetron HCl 4 mg 01/04/23 22:15 Ondansetron Hcl 4 Mg/2 Ml Vial IV 02/03/23 22:14 Q6H PRN PRN NAUSEA/VOMITING Pantoprazole Sodium 40 mg 01/05/23 10:00 01/06/23 09:00 Pantoprazole 40 Mg Vial IV 02/04/23 09:59 40 mg Q24H10 HYACINTH Administration Intake & Output (Last 24 hours) 01/04/23 01/05/23 01/06/23 01/07/23 11:59 11:59 11:59 11:59 Intake Total 853 4016 480 Output Total 1 Balance 852 4016 480 Weight 122.4 kg Microbiology Results (Last 24 hours) 01/04/23 22:21 Blood Blood Culture Gram Stain - Pending 01/04/23 22:21 Blood Blood Culture - Preliminary NO GROWTH TO DATE 01/04/23 20:37 Blood Blood Culture Gram Stain - Pending 01/04/23 20:37 Blood Blood Culture - Preliminary NO GROWTH TO DATE Laboratory Results (Last 24 hours) 01/04/23 20:37 C-Reactive Prot, Quant 63 H Orders (Last 24 hours) Category Date Time Status Discharge Routine Discharge 01/06/23 Ordered Discharge/Telephone Order Routine Discharge 01/06/23 Active Therapuetic Drug Level Monitor [Trough Drug Levels] Med 01/06/23 21:30 Discontinued 1 IJ 1XONLY ONE Patient Care Notes (Last 24 hours) 01/06/23 13:13 Nursing Note by Carmen Palomino patient drove self home on discharge - states will take full course of antibiotics and attend follow up after discharge Initialized on 01/06/23 13:13 - END OF NOTE 01/06/23 10:34 Case Management Note by Aleyda Carmona Spoke with pt and no new needs identified at discharge. States still plans to return home with significant other at [facility] and has no needs. Initialized on 01/06/23 10:34 - END OF NOTE Code(s): L03.90 - CELLULITIS, UNSPECIFIED - Discharge Discharge Date: 01/06/23 Disposition: Home, Self-Care Condition: Stable Prescriptions: New Levofloxacin [Levofloxacin 500 MG Tablet] 500 mg PO DAILY 7 Days #7 tablet No Action Indomethacin 25 mg [Indocin 25 MG] 25 mg PO TID Instructions: Cellulitis (Skin Infection), Adult (DC) Follow up with: FAUSTO GUTIERRES MD [Primary Care Provider] - 01/12/23 11:00 am ([facility])
[2023-01-06] MEDS ORDERED: TROUGH DRUG LEVELS IJ ONE (21:30)
== END 2023-01-06 13:08 | disposition home or self-care (01) ==
LOC: ED 19:27 → MED SURG 23:14
PROVIDERS: ADMIT General Practice; ATTEND General Practice
DX: L03.113 Cellulitis of right upper limb (principal); Z79.899 Other long term (current) drug therapy; Z20.828 Contact with and (suspected) exposure to other viral communicable diseases
CPT/HCPCS: 0241U; 36415; 73080; 80053; 83605; 85025; 86140; 87040; 96365; 96372; 99285; G0378; J1885; J3370

== ENCOUNTER 2023-03-07 09:37 | Emergency (ER) | payer OTHER ==
--- NOTE | 2023-03-07 09:49 | ERPHSYRPT ---
- History of Present Illness Time Seen by Provider: 03/07/23 09:48 Source: patient Exam Limitations: no limitations Physician History: This is an overweight 52-year-old white male patient of Dr. Gutierres who has had chronic bilateral knee pain for over a month. On 01/29/2023, the patient underwent x-rays of both knees. X-ray report impressions were reviewed by me. There were no acute fractures or subluxations in either knee. Patient had been referred to an orthopedic surgeon but did not follow-up with the appointment. Patient now states he has right knee pain. He has not fallen or had any acute traumatic injury since that time. His pain is more in the popliteal fossa area. He woke up this morning and it was difficult for him to get up and move around. Patient has no known drug allergies. He has not made a follow-up appointment with the orthopedic surgeon. Occurred: other (No acute injury or fall) Quality: aching Severity of Pain-Max: moderate Severity of Pain-Current: moderate Lower Extremities Pain: knee: right (Popliteal fossa region) Modifying Factors: Improves With: movement Associated Symptoms: other (Hurts to bear weight but can do so) Allergies/Adverse Reactions: No Known Drug Allergies Allergy (Verified 03/07/23 09:50) Hx Tetanus, Diphtheria Vaccination/Date Given: Yes Hx Influenza Vaccination/Date Given: No Hx Pneumococcal Vaccination/Date Given: No Travel Risk - International Travel Have you traveled outside of the country in past 3 weeks: No - Coronavirus Screening Are you exhibiting any of the following symptoms?: No Close contact with a COVID-19 positive Pt in past 14-21 Days: No - Vaccine Status Have you recieved a Covid-19 vaccination: No - Review of Systems Constitutional: No Symptoms Eyes: No Symptoms Ears, Nose, & Throat: No Symptoms Respiratory: No Symptoms Cardiac: No Symptoms Abdominal/Gastrointestinal: No Symptoms Genitourinary Symptoms: No Symptoms Musculoskeletal: Joint Pain (Right kneepopliteal fossa) Skin: No Symptoms Neurological: No Symptoms Psychological: No Symptoms Endocrine: No Symptoms Hematologic/Lymphatic: No Symptoms Immunological/Allergic: No Symptoms All Other Systems: Reviewed and Negative - Past Medical History Pertinent Past Medical History: Yes Neurological History: No Pertinent History ENT History: No Pertinent History Cardiac History: No Pertinent History Respiratory History: No Pertinent History Endocrine Medical History: No Pertinent History Musculoskeletal History: No Pertinent History GI Medical History: Hernia History: No Pertinent History Psycho-Social History: No Pertinent History Male Reproductive Disorders: No Pertinent History Other Medical History: GOUT - Past Surgical History Past Surgical History: Yes Neuro Surgical History: No Pertinent History Cardiac: No Pertinent History Respiratory: No Pertinent History Gastrointestinal: Hernia Repair Genitourinary: No Pertinent History Musculoskeletal: Orthopedic Surgery Male Surgical History: No Pertinent History Other Surgical History: Right elbow 1991. Left elbow 2017 - Social History Smoking Status: Never smoker Exposure to second hand smoke: No Drug Use: none Patient Lives Alone: No - Nursing Vital Signs Nursing Vital Signs: Initial Vital Signs Temperature 97 F 03/07/23 09:37 Pulse Rate 87 03/07/23 09:37 Respiratory Rate 17 03/07/23 09:37 Blood Pressure 139/108 03/07/23 09:37 O2 Sat by Pulse Oximetry 97 03/07/23 09:37 Pain Scale Pain Intensity 10 - Physical Exam General Appearance: no apparent distress, alert, obese Eyes, Ears, Nose, Throat Exam: normal ENT inspection, moist mucous membranes Neck Exam: normal inspection, non-tender, supple, full range of motion Cardiovascular/Respiratory Exam: chest non-tender, no respiratory distress Gastrointestinal/Abdominal Exam: non-tender Back Exam: normal inspection, normal range of motion, No CVA tenderness, No vertebral tenderness Hips Exam: bilateral: non-tender, normal inspection, normal range of motion, no evidence of injury Legs Exam: bilateral leg: non-tender, normal inspection, normal range of motion, no evidence of injury Knees Exam: right knee: soft tissue tenderness (Popliteal fossa), left knee: non-tender, bilateral knee: normal inspection, normal range of motion, no evidence of injury Ankle Exam: bilateral ankle: non-tender, normal inspection, normal range of motion, no evidence of injury Foot Exam: bilateral foot: non-tender, normal inspection, normal range of motion, no evidence of injury Neuro/Tendon Exam: normal sensation, normal motor functions, normal tendon functions, responds to pain, no evidence tendon injury Mental Status Exam: alert, oriented x 3, cooperative Skin Exam: normal color, warm, dry SpO2 Interpretation: normal O2 Delivery: Room Air - Course Nursing assessment & vital signs reviewed: Yes Ordered Tests: Active Orders 24 hr Category Date Time Status VENOUS UNILAT/LIMITED EXTREMIT [US] Stat Exams 03/07/23 11:14 Taken D-DIMER QUANTITATIVE Stat Lab 03/07/23 10:23 Completed Medication Summary Generic Name Dose Route Start Last Admin Trade Name Nathan PRN Reason Stop Dose Admin Enoxaparin Sodium 120 mg 03/07/23 13:16 Enoxaparin Sodium 120 Mg/0.8 Ml Syringe SQ 03/07/23 13:17 STAT STA Discontinued Medications Generic Name Dose Route Start Last Admin Trade Name Nathan PRN Reason Stop Dose Admin Oxycodone/Acetaminophen 1 tab 03/07/23 10:41 03/07/23 10:47 Oxycodone Hcl/Apap 5 Mg/325 Mg Tablet PO 03/07/23 10:42 1 tab STAT STA Administration Oxycodone/Acetaminophen Confirm 03/07/23 10:46 Oxycodone Hcl/Apap 5 Mg/325 Mg Tablet Administered 03/07/23 10:47 Dose 1 tab .ROUTE .STTyros-MED ONE Lab/Rad Data: Laboratory Results 03/07/23 Range/Units 10:23 D-Dimer 1.35 H* (0.0-0.50) mg/L - Progress Progress: improved, pain not gone completely Progress Note: 03/07/23 10:07 This patient's medical issue is 1 of moderate complexity. The level of complexity and the work-up performed is based on review of the patient's past medical history, review the patient's past x-ray results/impression, medication list, drug allergy list, history present illness and physical findings on examination. The work-up today is to obtain a D-dimer to determine whether or not venous Doppler/ultrasound is necessary for his right lower extremity. If the D-dimer is negative we will treat him with the Percocet pain pill here in the emergency department followed by outpatient Norflex and prednisone. If it is positive, we will order a venous Doppler to be done emergently in the emergency department. 03/07/23 13:17 The venous Doppler of the right lower extremity shows popliteal vein and posterior tibial vein proximal calf nonoccluding DVT. There are no femoral vein DVTs present per banking supervisor there/aircraft maintenance technician report. I reviewed the impression of the study. Patient will be given a dose of 120 mg subcutaneous Lovenox at this time. 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 Patient will need to call his primary care provider on 03/09/2003 to obtain a follow-up appointment in 3 to 5 days Counseled pt/family regarding: lab results, diagnosis, need for follow-up Medical Desision Making - Discussion of managment Agreed on:: Treatment plan, need for follow-up - Diagnostic Testing Radiological Interpretation: Reviewed by me, Teleradiologist Report - Risk of complications The pt has a mod risk of morbidity or mortality based on: Need for prescription drug management - Departure Departure Disposition: Home Clinical Impression: Right knee pain, Right leg DVT Condition: Stable Critical Care Time: No Referrals: FAUSTO GUTIERRES MD [Primary Care Provider] - Follow up/PCP as directed Additional Instructions: Take your medication as prescribed. Call your orthopedic surgeon on 03/09/2023 in the morning to make arrangements for follow-up appointment in the next 3 to 5 days Prescriptions: Prednisone 10 mg [Deltasone 10 mg] 10 mg PO TID #12 tablet Apixaban [Eliquis] 10 mg PO BID #28 tablet Orphenadrine Citrate 100 mg [Norflex 100 MG Tablet] 100 mg PO BID #10 tab
[2023-03-07] MEDS ORDERED: PERCOCET TABLET 5/325MG PO STA (10:41)
[2023-03-07] MEDS ORDERED: PERCOCET TABLET 5/325MG ONE (10:46)
[2023-03-07] MEDS ORDERED: ENOXAPARIN SODIUM SQ STA (13:16)
[2023-03-07] MEDS ORDERED: ENOXAPARIN SODIUM SQ ONE (13:33)
[2023-03-07 13:42] VITALS: BP 130/92; PULSE 60; O2SAT 95
--- NOTE | 2023-03-07 20:51 | XRAY ---
Indication: Pain and swelling 1 month. Two-dimensional sonogram and color Doppler imaging of the major venous vessels of the right leg performed. Comparison: None Tiny nonoccluding thrombi seen in the popliteal and posterior tibial veins. No other thrombus seen in the remaining deep venous vessels of the right leg including greater saphenous vein. Patent veins demonstrate normal compressibility. Impression: Nonoccluding DVT popliteal and posterior tibial veins. Comment: Preliminary report was given.
== END 2023-03-07 13:47 | disposition home or self-care (01) ==
LOC: ED 09:37
DX: I82.431 Acute embolism and thrombosis of right popliteal vein (principal); I82.441 Acute embolism and thrombosis of right tibial vein; M25.561 Pain in right knee; Z79.01 Long term (current) use of anticoagulants; Z79.52 Long term (current) use of systemic steroids; Z28.310 Unvaccinated for COVID-19
CPT/HCPCS: 36415; 85379; 93971; 96372; 99283; J1650; A9270-GY

== ENCOUNTER 2023-03-31 10:15 | Emergency (ER) | payer OTHER ==
--- NOTE | 2023-03-31 11:20 | ERPHSYRPT ---
- History of Present Illness Time Seen by Provider: 03/31/23 11:18 Source: patient Patient Subjective Stated Complaint: PT HERE FOR PAIN BEHIND RIGHT KNEE, HE HAS DVT TO RIGHT LEG 3 WEEKS AGO AND IS ON BLOOD THINNER, HE STATES HES LEG HURTS BUT IS WORSE THAN NORMAL Triage Nursing Assessment: PT ALERT, WALKED IN WITH CANE. SKIN W/D/P. NO REDNESS OR WARM, RESP EASY, Physician History: Patient is a 52-year-old male with a history of chronic right knee pain. Patient presents to our ED for evaluation of this knee pain. Patient has an orthopedic surgeon which she follows in [place]. Patient does not recall the doctor's name at this time. Patient had an x-ray of his right knee approximately 2 weeks ago. Patient cannot afford transportation to follow-up with his orthopedic doctor in [place]. Additionally patient currently on Xarelto for right lower extremity DVT. Patient has been experiencing the same pain for over 1 month. No associated shortness of breath. No nausea vomiting or diaphoresis. Symptoms are mild to moderate in intensity. Pain worse with weightbearing. Patient ambulates with a cane. However patient states that he has a walker at home. The walker significantly helps his knee pain when he ambulates. No interval falls no interval trauma. Patient voices no other complaints or concerns at this time. Patient declined pain medication. He states that Tylenol and Motrin at home. Portions of this note were created with voice recognition technology. There may be grammatical, spelling, punctuation or sound alike errors Method of Injury: unknown (No injury reported) Occurred: other (1 month ago) Quality: other (Ache) Severity of Pain-Max: moderate Severity of Pain-Current: mild (Patient declined pain medication.) Lower Extremities Pain: knee: right Modifying Factors: Improves With: other (Weightbearing) Associated Symptoms: none Allergies/Adverse Reactions: No Known Drug Allergies Allergy (Verified 03/31/23 10:32) Home Medications: Rivaroxaban [Xarelto] 15 mg PO DAILY 03/31/23 [History] Hx Tetanus, Diphtheria Vaccination/Date Given: Yes Hx Influenza Vaccination/Date Given: No Hx Pneumococcal Vaccination/Date Given: No Immunizations Up to Date: Yes Travel Risk - International Travel Have you traveled outside of the country in past 3 weeks: No - Coronavirus Screening Are you exhibiting any of the following symptoms?: No Close contact with a COVID-19 positive Pt in past 14-21 Days: No - Vaccine Status Have you recieved a Covid-19 vaccination: No - Review of Systems Constitutional: No Symptoms, No Fever, No Chills Eyes: No Symptoms Ears, Nose, & Throat: No Symptoms Respiratory: No Symptoms, No Cough, No Dyspnea Cardiac: No Symptoms, No Chest Pain, No Edema, No Syncope Abdominal/Gastrointestinal: No Symptoms, No Abdominal Pain, No Nausea, No Vomiting, No Diarrhea Genitourinary Symptoms: No Symptoms, No Dysuria Musculoskeletal: No Symptoms, No Back Pain, No Neck Pain Skin: No Symptoms, No Rash Neurological: No Symptoms, No Dizziness, No Focal Weakness, No Sensory Changes Psychological: No Symptoms Endocrine: No Symptoms Hematologic/Lymphatic: No Symptoms Immunological/Allergic: No Symptoms All Other Systems: Reviewed and Negative - Past Medical History Pertinent Past Medical History: Yes Neurological History: No Pertinent History ENT History: No Pertinent History Cardiac History: No Pertinent History Respiratory History: No Pertinent History Endocrine Medical History: No Pertinent History Musculoskeletal History: No Pertinent History GI Medical History: Hernia History: No Pertinent History Psycho-Social History: No Pertinent History Male Reproductive Disorders: No Pertinent History Other Medical History: GOUT,DVT RIGHT LEG 2022 - Past Surgical History Past Surgical History: Yes Neuro Surgical History: No Pertinent History Cardiac: No Pertinent History Respiratory: No Pertinent History Gastrointestinal: Hernia Repair Genitourinary: No Pertinent History Musculoskeletal: Orthopedic Surgery Male Surgical History: No Pertinent History Other Surgical History: Right elbow 1991. Left elbow 2017 - Social History Smoking Status: Never smoker Exposure to second hand smoke: No Drug Use: none Patient Lives Alone: No - Nursing Vital Signs Nursing Vital Signs: Initial Vital Signs Temperature 97.0 F 03/31/23 10:28 Pulse Rate 94 H 03/31/23 10:28 Respiratory Rate 18 03/31/23 10:28 Blood Pressure 168/109 03/31/23 10:28 O2 Sat by Pulse Oximetry 93 L 03/31/23 10:28 Pain Scale Pain Intensity 10 - Physical Exam General Appearance: no apparent distress, alert Eyes, Ears, Nose, Throat Exam: normal ENT inspection, pharynx normal, moist mucous membranes Neck Exam: non-tender, supple Cardiovascular/Respiratory Exam: chest non-tender, normal breath sounds, regular rate/rhythm, no respiratory distress Gastrointestinal/Abdominal Exam: non-tender, guarding Back Exam: normal inspection, No vertebral tenderness Hips Exam: bilateral: non-tender, normal inspection, normal range of motion, no evidence of injury Legs Exam: bilateral leg: non-tender, normal inspection, normal range of motion, no evidence of injury Knees Exam: left knee: non-tender, normal inspection, normal range of motion, no evidence of injury Ankle Exam: bilateral ankle: non-tender, normal inspection, normal range of motion, no evidence of injury Foot Exam: bilateral foot: non-tender, normal inspection, normal range of motion, no evidence of injury Neuro/Tendon Exam: normal sensation, normal motor functions Mental Status Exam: alert, oriented x 3, cooperative Skin Exam: normal color, warm, dry SpO2 Interpretation: normal SpO2: 93 O2 Delivery: Room Air - Course Nursing assessment & vital signs reviewed: Yes - Progress Progress: improved Progress Note: 52-year-old male with chronic knee pain. No interval trauma. Patient currently on Xarelto for a right lower extremity DVT. The involved extremity is neurovascular tact distally. Compartments are soft. Cap refill less than 2 seconds. Patient has an orthopedic doctor that is managing patient's right knee pain. Patient has not been able to follow-up at this doctor due to transportation issues. Right knee examination essentially within normal limits. No erythema. Normal active range of motion. Note occasion for further work-up at this time. Patient declined pain medication. Will discharge home. Patient encouraged to follow-up with his knee doctor regarding his chronic right knee pain. Portions of this note were created with voice recognition technology. There may be grammatical, spelling, punctuation or sound alike errors Complexity of problem addressed is low acute uncomplicated. No critical care time. Complexity of data reviewed and analyzed is none. No specialized testing ordered. Diagnosis made based on history and physical exami nation. Risk of complication and or risk morbidity/mortality patient management is minimal. Patient declined medication. Patient agrees to follow-up with his primary care doctor within 48 hours for evaluation. Patient states he will follow-up with his orthopedic doctor for chronic right knee pain. Patient voices no other complaints or concerns at this time. Patient Clines pain medication. Patient states he is ready for discharge. Portions of this note were created with voice recognition technology. There may be grammatical, spelling, punctuation or sound alike errors Counseled pt/family regarding: diagnosis, need for follow-up - Departure Departure Disposition: Home Clinical Impression: Chronic knee pain Condition: Stable Critical Care Time: No Referrals: FAUSTO GUTIERRES MD [Primary Care Provider] - Follow up/PCP as directed Additional Instructions: Discharge/Care Plan GEETHA RIDDLE was seen on 03/31/23 in the Emergency Room. The patient was counseled regarding Diagnosis,Lab results, Imaging studies, need for follow up and when to return to the Emergency Room. Prescriptions given: Discharge Note I have spoken with the patient and/or caregivers. I have explained the patient's condition, diagnosis and treatment plan based on the information available to me at this time. I have answered the patient's and/or caregiver's questions and addressed any concerns. The patient and/or caregivers have as good understanding of the patient's diagnosis, condition and treatment plan as can be expected at this point. The vital signs have been stable. The patient's condition is stable and appropriate for discharge from the emergency department. The patient will pursue further outpatient evaluation with the primary care physician or other designated or consulting physician as outlined in the discharge instructions. The patient and/or caregivers are agreeable to this plan of care and follow-up instructions have been explained in detail. The patient and/or caregivers have received these instruction. The patient/and or caregivers are aware that any significant change in condition or worsening of symptoms should prompt an immediate return to this or the closest emergency department or call 911.
[2023-03-31 11:29] VITALS: BP 140/93; PULSE 70; O2SAT 94
== END 2023-03-31 11:28 | disposition home or self-care (01) ==
LOC: ED 10:15
DX: G89.29 Other chronic pain (principal); M25.561 Pain in right knee; Z79.01 Long term (current) use of anticoagulants; Z28.310 Unvaccinated for COVID-19; Z59.82 Transportation insecurity; Z75.3 Unavailability and inaccessibility of health-care facilities
CPT/HCPCS: 99281

== ENCOUNTER 2023-07-11 14:10 | Emergency (ER) | payer OTHER ==
[2023-07-11 14:34] VITALS: RESP 18
--- NOTE | 2023-07-11 14:35 | ERPHSYRPT ---
- History of Present Illness Time Seen by Provider: 07/11/23 14:34 Source: patient Exam Limitations: no limitations Patient Subjective Stated Complaint: pain in left leg Triage Nursing Assessment: Patient reports to ER with c/o pain to his left leg. Patient reports that the pain started about two weeks ago primarily in left knee region. Patient reports pain has continued to worsen and know having pain in his left ankle and hip. Patient gaurding and with facial grimaces with ROM to LLE. Patient rating pain 10/10 at this time. Patient denies injury to affected extremity. Physician History: Patient presents w/ left knee and hip pain. No BEST. Gradual onset. Sharp, 10/10 in severity w/ no radiation. No redness or swelling. No fevers. NO previous surgeries. No OTC meds trialed. The knee pain is worse over anterior knee and lateral hip. Method of Injury: unknown Quality: constant, sharpness Severity of Pain-Max: severe Severity of Pain-Current: severe Lower Extremities Pain: hip: left, knee: left Modifying Factors: Improves With: nothing Associated Symptoms: none Allergies/Adverse Reactions: No Known Drug Allergies Allergy (Verified 07/11/23 14:21) Home Medications: Rivaroxaban [Xarelto] 15 mg PO BID 03/31/23 [History] Meloxicam 7.5 mg PO HS 07/11/23 [History] Hx Tetanus, Diphtheria Vaccination/Date Given: Yes Hx Influenza Vaccination/Date Given: No Hx Pneumococcal Vaccination/Date Given: No Immunizations Up to Date: Yes Travel Risk - International Travel Have you traveled outside of the country in past 3 weeks: No - Coronavirus Screening Are you exhibiting any of the following symptoms?: No - Vaccine Status Have you recieved a Covid-19 vaccination: No - Review of Systems Constitutional: No Symptoms Respiratory: No Symptoms Cardiac: No Symptoms Skin: No Symptoms Neurological: No Symptoms Hematologic/Lymphatic: No Symptoms - Past Medical History Pertinent Past Medical History: Yes Neurological History: No Pertinent History ENT History: No Pertinent History Cardiac History: No Pertinent History Respiratory History: No Pertinent History Endocrine Medical History: No Pertinent History Musculoskeletal History: Arthritis GI Medical History: Hernia History: No Pertinent History Psycho-Social History: No Pertinent History Male Reproductive Disorders: No Pertinent History Other Medical History: GOUT, DVT RIGHT LEG 2022 - Past Surgical History Past Surgical History: Yes Neuro Surgical History: No Pertinent History Cardiac: No Pertinent History Respiratory: No Pertinent History Gastrointestinal: Hernia Repair Genitourinary: No Pertinent History Musculoskeletal: Orthopedic Surgery Male Surgical History: No Pertinent History Other Surgical History: Right elbow 1991. Left elbow 2017 - Social History Smoking Status: Former smoker Exposure to second hand smoke: No Drug Use: none Patient Lives Alone: No - Nursing Vital Signs Nursing Vital Signs: Initial Vital Signs Pulse Rate 78 07/11/23 14:22 Respiratory Rate 18 07/11/23 14:22 Blood Pressure 149/118 07/11/23 14:22 O2 Sat by Pulse Oximetry 95 07/11/23 14:22 Pain Scale Pain Intensity 10 - Physical Exam General Appearance: no apparent distress Cardiovascular/Respiratory Exam: regular rate/rhythm, no respiratory distress Back Exam: normal inspection, normal range of motion Hips Exam: left: normal inspection, normal range of motion, soft tissue tenderness (gluteus medius) Legs Exam: left leg: normal inspection, normal range of motion, no evidence of injury Knees Exam: left knee: normal inspection, normal range of motion, no evidence of injury, soft tissue tenderness DTR - Lower Extremities Exam: knee (R): 2+, knee (L): 2+, ankle (R): 2+, ankle (L): 2+ Neuro/Tendon Exam: normal sensation, normal motor functions, normal tendon functions Mental Status Exam: alert, oriented x 3, cooperative Skin Exam: normal color, warm, dry SpO2 Interpretation: normal SpO2: 95 O2 Delivery: Room Air - Radiology Exams Right Hip X-ray Interpretation: Interpreted by me, Negative, No Fracture Right Knee X-ray Interpretation: Interpreted by me, No Fracture - Progress Progress: unchanged Progress Note: Patient has mild left knee OA and left gluteus medius tendonopathy. I offered CSI of subgluteal bursa, but patient prefers to try PT first. He is already taking 7.5mg of Meloxicam QD, I advised him to increase to 15mg QD. Follow up w/ ortho walk in clinic . Counseled pt/family regarding: diagnosis, need for follow-up, rad results Medical Desision Making - Diagnostic Testing Diagnostic test were ordered, analyzed, and reviewed by me: Yes Radiological Interpretation: Interpreted by me - Risk of complications Low Risk: Low risk of morbidity from additional dx testing or treatment - Departure Departure Disposition: Home Clinical Impression: Tendinopathy of gluteus medius, Left knee pain Condition: Good Critical Care Time: No Referrals: ORTHO - MAURICIO HAN FOOD SERVICE REPRESENTATIVE [NON-STAFF PHY W/O PRIVILEGES] - Follow up/PCP as directed Instructions: Hip Bursitis (DC), Hip Bursitis Exercises Additional Instructions: Increase Meloxicam to 15mg daily. Start home exercises and follow up with ortho walk in clinic for PT referral and possible injection.
[2023-07-11 17:05] VITALS: BP 144/86; PULSE 85
--- NOTE | 2023-07-11 20:21 | XRAY ---
Indication: Pain. Comparison: None AP pelvis and 2 view left hip demonstrates moderate lower lumbar degenerative changes. No other bony, articular, or soft tissue abnormalities.
--- NOTE | 2023-07-11 20:23 | XRAY ---
Indication: Pain. Comparison none 4View left knee demonstrates tiny lateral condyle bone island, mild patellofemoral degenerative changes with mild lateral patella tilting, and small nonspecific effusion. No other bony, articular, or soft tissue abnormalities.
[2023-07-14 15:54] VITALS: O2SAT 95
== END 2023-07-11 17:03 | disposition home or self-care (01) ==
LOC: ED 14:10
DX: M76.02 Gluteal tendinitis, left hip (principal); M25.562 Pain in left knee; Z79.01 Long term (current) use of anticoagulants; Z79.899 Other long term (current) drug therapy; Z28.310 Unvaccinated for COVID-19
CPT/HCPCS: 73502; 73564; 99283

== ENCOUNTER 2025-01-13 08:19 | Emergency (ER) | payer BC, OTHER ==
--- NOTE | 2025-01-13 08:22 | ERPHSYRPT ---
- History of Present Illness Time Seen by Provider: 01/13/25 08:22 Source: patient, family Exam Limitations: no limitations Physician History: This is an obese 54-year-old white male patient who has been diagnosed with DVT of his right lower extremity and was on Eliquis. This medication was changed to Xarelto. He was diagnosed on 03/07/2023. Patient states he was in [facility] and recently was discharged from [facility]. While in [facility] he was still taking his Xarelto. Patient then saw his primary care provider who referred this patient to smocking machine operator and smocking machine operator recently wrote a prescription to have the patient decrease the amount of Reltone he is taking daily. However, the patient has not filled that prescription yet and is taking his higher dose that was previously prescribed. Patient has noticed bruising that is mild but presents on the medial malleoli are area of the right foot and the heel of the left foot. The patient has pain in the left foot. He does not recall specific injury. Method of Injury: other (No known injury) Occurred: days ago (Several) Severity of Pain-Max: mild Severity of Pain-Current: mild Lower Extremities Pain: foot: left Modifying Factors: Improves With: movement Associated Symptoms: none Allergies/Adverse Reactions: No Known Drug Allergies Allergy (Verified 01/13/25 08:30) Home Medications: Rivaroxaban [Xarelto] 20 mg PO BID 03/31/23 [History] Meloxicam 7.5 mg PO HS 07/11/23 [History] Hx Tetanus, Diphtheria Vaccination/Date Given: Yes Hx Influenza Vaccination/Date Given: No Hx Pneumococcal Vaccination/Date Given: No Travel Risk - International Travel Have you traveled outside of the country in past 3 weeks: No - Emerging Infectious Disease Are you exhibiting symptoms associated with any current EIDs: No - Review of Systems Constitutional: No Symptoms Eyes: No Symptoms Ears, Nose, & Throat: No Symptoms Respiratory: No Symptoms Cardiac: No Symptoms Abdominal/Gastrointestinal: No Symptoms Genitourinary Symptoms: No Symptoms Musculoskeletal: Other (Left foot), No Injury Skin: Other (Mild ecchymosis left foot and skin overlying medial malleoli region right foot) Neurological: No Symptoms Psychological: No Symptoms Endocrine: No Symptoms Hematologic/Lymphatic: No Symptoms Immunological/Allergic: No Symptoms All Other Systems: Reviewed and Negative - Past Medical History Neurological History: No Pertinent History Cardiac History: Hypertension Respiratory History: No Pertinent History Endocrine Medical History: No Pertinent History Musculoskeletal History: Osteoarthritis Other Medical History: RIGHT TKR 03/11/24. SEES A HAND DOCTOR FOR WRIST "MILD TO MODERATE" CARPAL TUNNEL. REPORTING STIFFNESS THUMB RIGHT. ALSO SOME BACK PAIN - HAD MRI TODAY. - Past Surgical History Past Surgical History: Yes Neuro Surgical History: No Pertinent History Cardiac: No Pertinent History Respiratory: No Pertinent History Gastrointestinal: Hernia Repair Genitourinary: No Pertinent History Musculoskeletal: Orthopedic Surgery Male Surgical History: No Pertinent History Other Surgical History: Right elbow 1991. Left elbow 2017 - Social History Smoking Status: Former smoker Exposure to second hand smoke: No Drug Use: none Patient Lives Alone: No - Nursing Vital Signs Nursing Vital Signs: Initial Vital Signs Temperature 97.4 F 01/13/25 08:29 Pulse Rate 104 H 01/13/25 08:29 Respiratory Rate 18 01/13/25 08:29 Blood Pressure 145/100 01/13/25 08:29 O2 Sat by Pulse Oximetry 94 L 01/13/25 08:29 Pain Scale Pain Intensity 8 - Physical Exam General Appearance: no apparent distress, alert, anxiety, obese Eyes, Ears, Nose, Throat Exam: normal ENT inspection, moist mucous membranes Neck Exam: normal inspection, non-tender, supple, full range of motion Cardiovascular/Respiratory Exam: chest non-tender, no respiratory distress Gastrointestinal/Abdominal Exam: non-tender Back Exam: normal inspection, normal range of motion, No CVA tenderness, No vertebral tenderness Hips Exam: bilateral: non-tender, normal inspection, normal range of motion, no evidence of injury Legs Exam: bilateral leg: non-tender, normal inspection, normal range of motion, no evidence of injury Knees Exam: bilateral knee: non-tender, normal inspection, normal range of motion, no evidence of injury Ankle Exam: bilateral ankle: non-tender, normal inspection, normal range of motion Foot Exam: right foot: non-tender, no evidence of injury, ecchymosis (Skin overlying medial malleoli region, skin overlying heel on the left side), left foot: bone tenderness (Left heel), soft tissue tenderness (Left heel), bilateral foot: normal range of motion Neuro/Tendon Exam: normal sensation, normal motor functions, normal tendon functions, responds to pain, no evidence tendon injury Mental Status Exam: alert, oriented x 3, cooperative Skin Exam: ecchymosis (See above) SpO2 Interpretation: borderline oxygenation O2 Delivery: Room Air - Course Nursing assessment & vital signs reviewed: Yes Ordered Tests: Active Orders 24 hr Category Date Time Status FOOT (MINIMUM 3 VIEWS) Stat Exams 01/13/25 08:31 Completed CBC W DIFF Stat Lab 01/13/25 08:45 Completed PT INR [PROTIME WITH INR] Stat Lab 01/13/25 08:45 Completed Lab/Rad Data: Laboratory Result Diagrams 01/13/25 08:45 Laboratory Results 01/13/25 01/13/25 Range/Units 08:45 08:45 WBC 6.3 (4.23-9.07) x10^3/uL RBC 4.66 (4.63-6.08) x10^6/uL Hgb 14.1 (13.7-17.5) g/dL Hct 41.7 (40.1-51.0) % MCV 89.5 (79.0-92.2) fL MCH 30.3 (25.7-32.2) pg MCHC 33.8 (32.3-36.5) g/dL RDW 12.5 (11.6-14.4) % Plt Count 246 (163-337) x10^3/uL MPV 9.8 (9.4-12.4) fL Gran % 56.9 (34.0-67.9) % Immature Gran % (Auto) 0.3 (0.001-0.429) % Nucleat RBC Rel Count 0.0 (0.00-0.2) % Eos # (Auto) 0.12 (0.04-0.54) x10^3/uL Immature Gran # (Auto) 0.02 (0.001-0.031) x10^3u/L Absolute Lymphs (auto) 1.99 (1.32-3.57) x10^3/uL Absolute Monos (auto) 0.52 (0.30-0.82) x10^3/uL Absolute Nucleated RBC 0.00 (0.00-0.012) x10^3u/L Lymphocytes % 31.8 (21.8-53.1) % Monocytes % 8.3 (5.3-12.2) % Eosinophils % 1.9 (0.8-7.0) % Basophils % 0.8 (0.2-1.2) % Absolute Granulocytes 3.56 (1.78-5.38) x10^3/uL Basophils # 0.05 (0.01-0.08) x10^3/uL PT 12.6 H (9.4-12.5) SECONDS INR 1.17 (0.8-3.0) - Progress Progress: unchanged Progress Note: 01/13/25 08:49 My medical decision making of the assignment of low complexity to this patient's medical issue today is based on review of the patient's past medical history, review of the patient's medication list, reviewed patient drug allergy list, history present illness and physical findings on examination. The workup today includes CBC, PT/INR and x-ray of the left foot. Differential diagnosis includes but is not limited to ecchymosis secondary to over anticoagulation, left foot injury with contusion versus fracture versus sprain left foot 01/13/25 09:17 I interpreted the patient's laboratory data results. Based on the laboratory data results, the patient's white count, hemoglobin and platelet counts are all normal. Patient clinically does not have any evidence of cellulitis. The INR is normal. I interpreted the preliminary report of the patient's left foot x-ray. There is no evidence of any acute fracture or dislocation. Counseled pt/family regarding: lab results, diagnosis, need for follow-up, rad results Medical Desision Making - Diagnostic Testing Diagnostic test were ordered, analyzed, and reviewed by me: Yes Radiological Interpretation: Interpreted by me, Teleradiologist Report - Risk of complications Minimal Risk: Minimal risk of morbidity - Departure Departure Disposition: Home Clinical Impression: Left foot pain Condition: Stable Critical Care Time: No Referrals: GEORGIA BALDWIN FNP [Primary Care Provider] - Follow up/PCP as directed Additional Instructions: Call your prescribing provider and smocking machine operator today and make them aware of the bruising of your feet without history of injury. Fill the prescription of Xarelto and take it as prescribed. Weightbearing as tolerated
[2025-01-13 08:30] VITALS: RESP 18; TEMP 97.4
[2025-01-13 09:03] LABS: Absolute Neutrophil Ct (ANC) 3.56 x10^3/uL (1.78-5.38); BASOPHIL % 0.8 % (0.2-1.2); Basophil (Absolute #) 0.05 x10^3/uL (0.01-0.08); Eosinophil % 1.9 % (0.8-7.0); Eosinophil (Absolute #) 0.12 x10^3/uL (0.04-0.54); Hematocrit 41.7 % (40.1-51.0); Hemoglobin 14.1 g/dL (13.7-17.5); IMMATURE GRAN # 0.02 x10^3u/L (0.001-0.031); IMMATURE GRAN % 0.3 % (0.001-0.429); Lymphocyte (Absolute #) 1.99 x10^3/uL (1.32-3.57); Lymphocytes % 31.8 % (21.8-53.1); Mean Cell Volume 89.5 fL (79.0-92.2); Mean Corpuscular Hemoglobin 30.3 pg (25.7-32.2); Mean Corpuscular Hgb Concent. 33.8 g/dL (32.3-36.5); Mean Platelet Volume 9.8 fL (9.4-12.4); Monocyte (Absolute #) 0.52 x10^3/uL (0.30-0.82); Monocytes % 8.3 % (5.3-12.2); Neutrophil % 56.9 % (34.0-67.9); Platelet Count 246 x10^3/uL (163-337); Red Blood Count 4.66 x10^6/uL (4.63-6.08); Red Cell Distribution Width 12.5 % (11.6-14.4); White Blood Count 6.3 x10^3/uL (4.23-9.07)
[2025-01-13 09:11] LABS: INR 1.17 (0.8-3.0); PROTIME 12.6 SECONDS (9.4-12.5)
--- NOTE | 2025-01-13 09:16 | XRAY ---
CLINICAL HISTORY: Bruising COMPARISON: No prior studies available for comparison. TECHNIQUE: X-ray images of the left foot were obtained in anteroposterior (AP), lateral, and oblique projections. FINDINGS: Bone Structure: Bone structure is normal and aligned. No evidence of fracture or dislocation. No osseous lesions or abnormalities identified. A curvilinear dense line at the proximal shaft of the first metatarsal Joint Spaces: Joint spaces are normal. No evidence of joint effusion or subluxation. Soft Tissues: Soft tissues appear normal and unremarkable. No soft tissue swelling, calcifications, or foreign bodies noted. IMPRESSION: Normal X-ray of the left foot. No evidence of acute fracture, dislocation, or significant soft tissue abnormalities. Disclaimer: A subtle bone abnormality or fracture may not be readily apparent on X-rays, thus clinical correlation and further imaging including follow-up CT, MRI, or follow-up X-rays are advised as needed. Electronically Signed by: Álvaro Bates MD. (01/13/2025 09:11:34 EST)
[2025-01-13 09:39] VITALS: BP 118/87; PULSE 81; O2SAT 100
== END 2025-01-13 09:27 | disposition home or self-care (01) ==
LOC: ED 08:19
DX: M79.672 Pain in left foot (principal); I10 Essential (primary) hypertension; Z79.01 Long term (current) use of anticoagulants; Z79.899 Other long term (current) drug therapy
CPT/HCPCS: 36415; 73630; 85025; 85610; 99282; 99284